=== PATIENT | female | born 1955 | race Caucasian/White ===

== ENCOUNTER 2023-04-07 07:30 | Outpatient (OUT) | payer MEDICARE, SELFPAY ==
[2023-04-07 07:47] LABS: Basophils Absolute Auto 0.1 10^3/uL (0.0-0.1); Basophils Percent Auto 1.7 % (0.2-2.0); Eosinophils Absolute Auto 0.2 10^3/uL (0.0-0.7); Eosinophils Percent Auto 3.2 % (0.9-7.0); Hematocrit 40.4 % (36.0-48.0); Hemoglobin 13.5 g/dL (12.0-16.0); Immature Granulocytes Abs Auto 0.01 10^3/uL (0.00-0.03); Immature Granulocytes Pct Auto 0.2 % (0.0-0.5); Lymphocytes Percent Auto 42.7 % (20.5-60.0); Mean Corpuscular HGB Conc 33.4 g/dL (29.9-35.2); Mean Corpuscular Hemoglobin 30.1 pg (26.7-34.0); Mean Corpuscular Volume 90.2 fL (81.0-99.0); Mean Platelet Volume 8.7 fL (9.5-13.5); Monocytes Absolute Auto 0.4 10^3/uL (0.3-0.8); Monocytes Percent Auto 7.4 % (1.7-12.0); Neutrophils Absolute Auto 2.1 10^3/uL (1.4-6.5); Neutrophils Percent Auto 44.8 % (43.0-75.0); Platelet Count 263 10^3/uL (150-450); Red Blood Count 4.48 10^6/uL (4.20-5.40); Red Cell Distribution Width 13.4 % (11.0-15.0); White Blood Count 4.8 10^3/uL (4.0-11.0)
--- NOTE | 2023-04-07 07:51 | XR_ITS ---
[address] [address] Patient Name: MARY CAMARA MRN: [id number] date: 1955 Sex: F Assigned Patient Location: [facility] Current Patient Location: [facility] Accession/Order Number: [id number] Exam Date: 04/07/2023 08:10 Report Date: 04/07/2023 08:30 At the request of: SHAN KWONG Procedure: XR DEXA axial skeleton EXAMINATION: XR DEXA axial skeleton HISTORY: Osteopenia M85.80 COMPARISON: DEXA bone densitometry 03/27/2021 TECHNIQUE: Dual-energy X-ray absorptiometry (DXA) was performed. FINDINGS: SPINE ANALYSIS: Average bone mineral density is 1.183 g/cm2. T-score (standard deviation relative to young adult mean): 0.0 . +6.5% change since prior study. HIP ANALYSIS: Lowest bone mineral density is within the left femoral neck, 0.782 g/cm2. T-score (standard deviation relative to young adult mean): -1.8 . +1.8% change since prior study. XR/XR DEXA axial skeleton IMPRESSION: World Phani Organization Classification: Osteopenia - Moderate Fracture Risk Electronically authenticated by: MARIA DOLORES GUIDRY Date: 04/07/2023 08:30
--- NOTE | 2023-04-07 07:51 | MM_ITS ---
Patient: MARY CAMARA Exam Date: 04/07/2023 : 1955 Gender:F Ordering : LESLYE Michelle Walton PROTOZOOLOGIST Admission #: [id number] Family : Order #: [id number] CLICK HERE TO VIEW EXAM RADIOLOGY REPORT PROCEDURE: MM TOMOSYNTHESIS SCREENING BI COMPARISON: MG MAMM SCREEN 3D VÍCTOR CAD, 04/04/2022. MG MAMM SCREEN 3D VÍCTOR CAD, 03/27/2021. MG MAMM SCREEN VÍCTOR W CAD, 03/31/2020. MG MAMM SCREEN VÍCTOR W CAD, 12/05/2011. INDICATIONS: Screening Calculator Name NCI Breast Cancer Risk Assessment Tool 5 Year Breast Cancer Risk 1.50% Lifetime Breast Cancer Risk 5.00% Personal Breast Cancer No Personal Ovarian Cancer No Treatments None Family Cancers Father with lung cancer at age 75. LOCATION: [facility] BREAST COMPOSITION: Extremely dense, which lowers the sensitivity of mammography. FINDINGS: DIAGNOSTIC CATEGORY 1--NEGATIVE. RIGHT BREAST: No significant suspicious finding. No significant change has occurred. LEFT BREAST: No significant suspicious finding. No significant change has occurred. RECOMMENDATIONS: ROUTINE MAMMOGRAM AND CLINICAL EVALUATION IN 12 MONTHS. PLEASE NOTE: A NORMAL MAMMOGRAM DOES NOT EXCLUDE THE POSSIBILITY OF BREAST CANCER. A CLINICALLY SUSPICIOUS PALPABLE LUMP SHOULD BE BIOPSIED. Dictated by: Pacheco Mcleod M.D. on 04/07/2023 at 11:19 Approved by: Pacheco Mcleod M.D. on 04/07/2023 at 11:21
[2023-04-07 10:59] LABS: Free T4 0.92 ng/dL (0.76-1.46)
[2023-04-07 14:39] LABS: Chloride 105 mmol/L (98-107); Sodium 141 mmol/L (136-145)
[2023-04-07 14:40] LABS: Alanine Aminotransferase 14 U/L (14-59); Albumin Globulin Ratio 1.5; Alkaline Phosphatase 60 U/L (46-116); Anion Gap 13.8; Aspartate Amino Transferase 17 U/L (15-37); BUN Creatinine Ratio 14.1; Bilirubin Total 0.5 mg/dL (0.2-1.0); Calcium 8.7 mg/dL (8.5-10.1); Carbon Dioxide 26.2 mmol/L (21.0-32.0); Chol HDL Ratio 2.5; Cholesterol 242 mg/dL (<=200); Estimated GFR (African America >60 (>=60); Estimated GFR (Non-African Ame >60 (>=60); Globulin 2.6 g/dL; Glucose 87 mg/dL (74-106); HDL Cholesterol 98 mg/dL (40-60); Thyroid Stimulating Hormone 7.341 uIU/mL (0.358-3.740); Total Protein 6.6 g/dL (6.4-8.2); Triglycerides 68 mg/dL (<=150); VLDL CHOLESTEROL 13.6 mg/dL
== END 2023-04-07 07:31 | disposition home or self-care (01) ==
LOC: MAMMO 07:30
PROVIDERS: PCP Nurse Practitioner; Visit Provider Nurse Practitioner
DX: Z12.31 Encounter for screening mammogram for malignant neoplasm of breast (principal); M85.80 Other specified disorders of bone density and structure, unspecified site; E03.9 Hypothyroidism, unspecified; E78.5 Hyperlipidemia, unspecified
CPT/HCPCS: 36415; 77063; 77067; 77080; 80053; 80061; 82306; 84439; 84443; 85025

== ENCOUNTER 2024-06-01 08:02 | Outpatient (OUT) | payer OTHER, SELFPAY ==
[2024-06-01 08:15] LABS: Basophils Absolute Auto 0.1 10^3/uL (0.0-0.1); Basophils Percent Auto 1.3 % (0.2-2.0); Eosinophils Absolute Auto 0.1 10^3/uL (0.0-0.7); Eosinophils Percent Auto 2.2 % (0.9-7.0); Hematocrit 40.8 % (36.0-48.0); Hemoglobin 13.6 g/dL (12.0-16.0); Immature Granulocytes Abs Auto 0.01 10^3/uL (0.00-0.03); Immature Granulocytes Pct Auto 0.2 % (0.0-0.5); Lymphocytes Absolute Auto 1.8 10^3/uL (1.2-3.8); Lymphocytes Percent Auto 38.3 % (20.5-60.0); Mean Corpuscular HGB Conc 33.3 g/dL (29.9-35.2); Mean Corpuscular Hemoglobin 30.8 pg (26.7-34.0); Mean Corpuscular Volume 92.3 fL (81.0-99.0); Mean Platelet Volume 8.7 fL (9.5-13.5); Monocytes Absolute Auto 0.3 10^3/uL (0.3-0.8); Monocytes Percent Auto 6.5 % (1.7-12.0); Neutrophils Absolute Auto 2.4 10^3/uL (1.4-6.5); Neutrophils Percent Auto 51.5 % (43.0-75.0); Platelet Count 241 10^3/uL (150-450); Red Blood Count 4.42 10^6/uL (4.20-5.40); Red Cell Distribution Width 13.2 % (11.0-15.0); White Blood Count 4.6 10^3/uL (4.0-11.0)
[2024-06-01 08:52] LABS: Alanine Aminotransferase 11 U/L (14-59); Albumin Globulin Ratio 1.2; Albumin Level 3.6 g/dL (3.4-5.0); Alkaline Phosphatase 65 U/L (46-116); Anion Gap 9.6; Aspartate Amino Transferase 18 U/L (15-37); BUN Creatinine Ratio 12.7; Bilirubin Total 0.6 mg/dL (0.2-1.0); Calcium 8.9 mg/dL (8.5-10.1); Carbon Dioxide 30.3 mmol/L (21.0-32.0); Chloride 105 mmol/L (98-107); Chol HDL Ratio 2.4; Cholesterol 228 mg/dL (<=200); Estimated GFR (African America >60 (>=60); Estimated GFR (Non-African Ame >60 (>=60); Glucose 87 mg/dL (74-106); HDL Cholesterol 95 mg/dL (40-60); Potassium 3.9 mmol/L (3.5-5.1); Sodium 141 mmol/L (136-145); Thyroid Stimulating Hormone 2.736 uIU/mL (0.358-3.740); Total Protein 6.6 g/dL (6.4-8.2); Triglycerides 69 mg/dL (<=150); VLDL CHOLESTEROL 13.8 mg/dL
[2024-06-01 09:03] LABS: Free T4 1.04 ng/dL (0.76-1.46)
--- NOTE | 2024-06-02 | MM_ITS ---
Patient Name: MARY CAMARA MR#: [id number] : 1955 Exam Date: 06/02/2024 Ordering Doctor: LESLYE Walton CNP RADIOLOGY REPORT PROCEDURE: MM TOMOSYNTHESIS SCREENING BI COMPARISON: MG MAMM SCREEN 3D VÍCTOR CAD, 04/04/2022. MM TOMOSYNTHESIS SCREENING BI, 04/07/2023. INDICATIONS: Screening Mammogram Calculator Name NCI Breast Cancer Risk Assessment Tool 5 Year Breast Cancer Risk 1.50% Lifetime Breast Cancer Risk 4.80% Personal Breast Cancer No Personal Ovarian Cancer No Treatments None Family Cancers Father with lung cancer at age 75. LOCATION: [facility] BREAST COMPOSITION: The breasts are extremely dense, which lowers the sensitivity of mammography. FINDINGS: DIAGNOSTIC CATEGORY 2--BENIGN FINDING. NO CHANGE FROM COMPARISON. RIGHT BREAST: No significant suspicious finding. LEFT BREAST: No significant suspicious finding. RECOMMENDATIONS: ROUTINE MAMMOGRAM AND CLINICAL EVALUATION IN 12 MONTHS. PLEASE NOTE: A NORMAL MAMMOGRAM DOES NOT EXCLUDE THE POSSIBILITY OF BREAST CANCER. A CLINICALLY SUSPICIOUS PALPABLE LUMP SHOULD BE BIOPSIED. Dictated by: John Cole MD on 06/02/2024 at 11:30 Approved by: John Cole MD on 06/02/2024 at 11:33
== END 2024-06-01 08:03 | disposition home or self-care (01) ==
LOC: LAB 08:02
PROVIDERS: PCP Nurse Practitioner; Visit Provider Nurse Practitioner
DX: K21.9 Gastro-esophageal reflux disease without esophagitis (principal); M85.80 Other specified disorders of bone density and structure, unspecified site; E03.9 Hypothyroidism, unspecified; Z80.1 Family history of malignant neoplasm of trachea, bronchus and lung
CPT/HCPCS: 36415; 80053; 80061; 84439; 84443; 85025

== ENCOUNTER 2024-06-02 10:00 | Outpatient (OUT) | payer OTHER, SELFPAY ==
--- NOTE | 2024-06-02 09:08 | MM_ITS ---
Patient Name: MARY CAMARA MR#: [id number] : 1955 Exam Date: 06/02/2024 Ordering Doctor: LESLYE Walton CNP RADIOLOGY REPORT PROCEDURE: MM TOMOSYNTHESIS SCREENING BI COMPARISON: MG MAMM SCREEN 3D VÍCTOR CAD, 04/04/2022. MM TOMOSYNTHESIS SCREENING BI, 04/07/2023. INDICATIONS: Screening Mammogram Calculator Name NCI Breast Cancer Risk Assessment Tool 5 Year Breast Cancer Risk 1.50% Lifetime Breast Cancer Risk 4.80% Personal Breast Cancer No Personal Ovarian Cancer No Treatments None Family Cancers Father with lung cancer at age 75. LOCATION: [facility] BREAST COMPOSITION: The breasts are extremely dense, which lowers the sensitivity of mammography. FINDINGS: DIAGNOSTIC CATEGORY 2--BENIGN FINDING. NO CHANGE FROM COMPARISON. RIGHT BREAST: No significant suspicious finding. LEFT BREAST: No significant suspicious finding. RECOMMENDATIONS: ROUTINE MAMMOGRAM AND CLINICAL EVALUATION IN 12 MONTHS. PLEASE NOTE: A NORMAL MAMMOGRAM DOES NOT EXCLUDE THE POSSIBILITY OF BREAST CANCER. A CLINICALLY SUSPICIOUS PALPABLE LUMP SHOULD BE BIOPSIED. Dictated by: John Cole MD on 06/02/2024 at 11:30 Approved by: John Cole MD on 06/02/2024 at 11:33
== END 2024-06-02 10:01 | disposition home or self-care (01) ==
LOC: MAMMO 06-14 09:05
PROVIDERS: PCP Nurse Practitioner; Visit Provider Nurse Practitioner
DX: Z12.31 Encounter for screening mammogram for malignant neoplasm of breast (principal); K21.9 Gastro-esophageal reflux disease without esophagitis; M85.80 Other specified disorders of bone density and structure, unspecified site; E03.9 Hypothyroidism, unspecified; Z80.1 Family history of malignant neoplasm of trachea, bronchus and lung
CPT/HCPCS: 77063; 77067

== ENCOUNTER 2024-12-20 10:08 | Emergency (ER) | payer OTHER, SELFPAY ==
[2024-12-20 10:13] VITALS: BP 121/84; PULSE 70; TEMP 36.9; O2SAT 96; BMI 22.1
--- NOTE | 2024-12-20 10:59 | ED_ITS ---
HPI HPI - General Adult General Chief complaint: Extremity Injury, Upper Stated complaint: FINGER PAIN Time Seen by Provider: 12/20/24 10:46 Source: patient Mode of arrival: walk-in History of Present Illness HPI narrative: Patient is a 69-year-old female who is presenting to the ER with chief complaint of reevaluation of right thumb wound, to the radial aspect of the right thumb lateral to the fingernail. Patient went to the urgent care on December 03 because she had avulsion to the distal aspect of the right thumb, radial aspect. Patient says there was a nurse practitioner that was working that today, and she used silver nitrate multiple times to stop the bleeding in the urgent care that time. Patient has an area of 2 x 1 cm necrotic area of skin That is partially falling off from this overnight procedure several weeks ago. Patient has some mild swelling to the fat pad of the right thumb, patient still having some yellowish-greenish drainage coming from the radial aspect of the necrotic area where the area is still draining some fluid. Patient still has areas of mild paronychia. No signs of felon, no signs of herpetic dilcia. All systems are negative except as noted/marked. All systems reviewed and otherwise negative. Nurses note and vital signs reviewed and patient is not hypoxic. General: The patient appears well and in no apparent distress. Patient is resting comfortably on cart. Patient is not toxic, lethargic, or listless Skin: Warm, dry, no pallor noted. There is no rash noted. No petechiae, purpura. Patient has some mild swelling to the fat pad of the right thumb, pa tient still having some yellowish-greenish drainage coming from the radial aspect of the necrotic area where the area is still draining some fluid. Patient still has areas of mild paronychia. No signs of felon, no signs of herpetic dilcia. Head: Normocephalic, atraumatic Eye: Normal conjunctiva, no drainage, EOMI. PERRL Ears, Nose, Mouth, and Throat: oral mucosa is moist. Nares patent. Mouth without vesicles. Cardiovascular: Regular Rate and Rhythm, no murmur, gallop, rub Respiratory: Patient is in no distress, no accessory muscle use, lungs are clear to auscultation, no wheezing, rales or rhonchi Back: non-tender, no CVA tenderness bilaterally to percussion. No CT LS midline pain GI: no tenderness to palpation, no masses appreciated. No rebound, guarding, or rigidity noted. No distention Musculoskeletal: Patient has full range of motion of all of the extremities, no motor, sensory, or focal neurological deficits. Patient has full superficial deep flexor tendons involved along with extensor tendons of the right thumb. The right fingernail is not involved at all, there is no elevation of the right thumbnail. No significant pain or pressure to the fat pad of the right thumb, no signs of felon, herpetic dilcia. Patient still has mild signs of paronychia I with the necrotic tissue above. Neurological: A&O x4, normal speech Psychiatric: Cooperative Related Data Home Medications ?Medication ?Instructions ?Recorded ?Confirmed alendronate 35 mg tablet 35 mg PO QWEEK 12/20/24 12/20/24 cephalexin 500 mg capsule 500 mg PO Q8H 12/20/24 12/20/24 escitalopram oxalate 10 mg tablet 10 mg PO QAM 12/20/24 12/20/24 levothyroxine 75 mcg tablet 75 mcg PO QAM 12/20/24 12/20/24 Previous Rx's ?Medication ?Instructions ?Recorded mupirocin 2 % topical ointment 1 applic topical TID 14 days #15 12/20/24 grams Allergies Allergy/AdvReac Type Severity Reaction Status Date / Time Sulfa (Sulfonamide Allergy Severe Headache Verified 12/20/24 10:17 Antibiotics) Opioid HPI Opioid Management Most Recent Opioid Data: No Data to Display PFSH PFSH Social History Little interest or pleasure in doing things: not at all Feeling down, depressed, or hopeless: not at all Exam Constitutional Vital Signs, click to edit/add: Last Vital Signs Temp 98.5 F 12/20/24 10:13 Pulse 70 12/20/24 10:13 Resp 18 12/20/24 10:13 BP 121/84 12/20/24 10:13 Pulse Ox 96 12/20/24 10:13 O2 Del Method Room Air 12/20/24 10:13 Course Vital Signs Vital signs: Vital Signs Temperature 98.5 F 12/20/24 10:13 Pulse Rate 70 12/20/24 10:13 Respiratory Rate 18 12/20/24 10:13 Blood Pressure 121/84 12/20/24 10:13 Pulse Oximetry 96 12/20/24 10:13 Oxygen Delivery Method Room Air 12/20/24 10:13 Temperature 98.5 F 12/20/24 10:13 Pulse Rate 70 12/20/24 10:13 Respiratory Rate 18 12/20/24 10:13 Blood Pressure 121/84 12/20/24 10:13 Pulse Oximetry 96 12/20/24 10:13 Oxygen Delivery Method Room Air 12/20/24 10:13 Medical Decision Making MDM Narrative Medical decision making narrative: Patient seen and examined: Education was done at bedside, no acute intervention needs to be done. Differential diagnosis includes but is not limited to: Diagnostics and management: Patient will have laboratory studies Relevant laboratory interpretation: Radiological studies: Please see the formal radiological report. Reevaluation: Shared decision making: I discussed with the patient the necessary laboratory findings and radiological findings. Social barriers to healthcare: There are no food insecurities, there is no issue with transportation, there are no insurance barriers. Disposition: I discussed with the patient education on herpetic dilcia, felon, paronychia. Education on the necrotic skin that has occurred after the silver nitrate was used to stop the bleeding. The skin will eventually slough off and patient has new skin that is growing underneath. Patient was placed on Bactroban prophylactically. Patient will follow-up with PCP. Patient was made an appointment on December [address] Dan if needed at 11 AM. Patient is aware of this. No questions at discharge. Discharge Plan Discharge Chief Complaint: Extremity Injury, Upper Clinical Impression: Paronychia of thumb, right Patient Disposition: Home, Self-Care Time of Disposition Decision: 10:55 Condition: Fair Prescriptions / Home Meds: New mupirocin 2 % ointment 1 applic topical TID 14 Days Qty: 15 0RF No Action alendronate 35 mg tablet 35 mg PO QWEEK cephalexin 500 mg capsule 500 mg PO Q8H escitalopram oxalate 10 mg tablet 10 mg PO QAM levothyroxine 75 mcg tablet 75 mcg PO QAM Print Language: Tristanian Instructions: Paronychia (ED) Additional Instructions: You have an appointment with Dr. DAN at 11 AM on December 27. Do warm soaks every hour with your right thumb in warm water, do not burn yourself, for the next 5 to 7 days. Start the topical antibiotic ointment today Follow-up with your PCP at scheduled appointment. Referrals: Michelle Walton NP [Primary Care Provider] - 1 week Pacheco Dan MD [Physician] - 1 week Discharge Date/Time: 12/20/24 11:06
== END 2024-12-20 11:06 | disposition home or self-care (01) ==
PROVIDERS: Emergency Provider Emergency Medicine; PCP Nurse Practitioner
DX: L03.011 Cellulitis of right finger (principal)
CPT/HCPCS: 99283

== ENCOUNTER 2025-07-01 08:04 | Outpatient (OUT) | payer OTHER, SELFPAY ==
--- OUTSIDE RECORDS SUMMARY | 2025-06-16 21:09 | XMS_ITS | Continuity of Care Document ---
Author Organization [facility] Address [address] [place] [address] Phone Care Team Providers Care Certified Driver Examiner Name Role Phone Michelle Walton HOPPER FEEDER-C Primary Care Provider Michelle Walton HOPPER FEEDER-C Attending Provider Care Teams Patient Care Team Team Status: Active Member Role Status Dates Michelle Walton NP-C Primary Care Provider Active Visit Care Team Team Status: Inactive Member Role Status Dates Michelle Walton NP-C Primary Care Provider Active Start: May 24, 2025 End: May 24, 2025 Michelle Walton NP-Celeste Attending Provider Active Start: May 24, 2025 End: May 24, 2025 Visit Care Team Team Status: Inactive Member Role Status Dates Michelle Walton NP-Celeste Primary Care Provider Active Start: June 16, 2025 End: June 16, 2025 Michelle Walton NP-Celeste Attending Provider Active Start: June 16, 2025 End: June 16, 2025 Chief Complaint and Reason for Visit Chief Complaint Admit Date Medicare Annual Wellness May 24, 2025 9:59am Z12.31 Z12.39 June 16, 2025 2: 43pm Reason for Visit Admit Date Acquired hypothyroidism May 24 9:59am Breast cancer screening by mammogram Sep tember 2024 9:59am Encounter for subsequent ximena ual wellness visit (AWV) in Medicare patient May 24, 2025 9:59am ORQUIDEA (generalized anxiety disorder) Sophia jacobsen 2024 9:59am Major depressive disorder, single episod e, mild May 24, 2025 9:59am Osteopenia May 24, 2025 9:59am Allergies, Adverse Reactions, Alerts Allergen Type Severity Reaction Last Updated Verified Status Sulfa (Sulfonamide Antibiotics) Allergy Unknown SEVERE HEADACHE December 14, 2024 11:41am Yes Active sulfacetamide Allergy Unknown Headache December 14, 2024 11:41am Yes Active sulfur Allergy Unknown Headache December 14 11:41am Yes Active Social History Smoking Status Status Start Date End Date Date of Observa tion Ex-smoker (finding) June 28, 2024 8:13am Observation Status Observation Response Date of Response Legal Sex Female (finding) Sex Assigned At Female 1955 Family History Relationship Condition Age at Onset Recorded Date/T jadyn father Unknown Malignant neoplasm Unknown mother Cerebrovascular accident (CVA) Unknown Hypertension Unknown Problems Active Problems Medical Problem Onset Date Status Left tennis elbow Unknown Active Encounter for subsequent ximena [facility] wellness visit (AWV) in Medicare patient Unknown Active ORQUIDEA (generalized anxiety disorder) Unknown Active Dysfunction of right eustachian tube Unknown Active Breast cancer screening by mammogram Unknown Active Acquired hypothyroidism Unknown Active Dysphagia Unknown Active Osteopenia Unknown Active Major depressive disorder, single episode, mild Unknown Active Irritable bowel syndrome with diarrhea Unknown Active Torus palatinus Unknown Active Seasonal allergic rhinitis Unknown Activ e Constipation Unknown Active Irritable bowel syndrome Unknown Active Inactive/Resolved Problems Medical Problem Onset Date Status Avulsion of skin of right thumb without complica tion Unknown Resolved Breast cancer screening Unknown Resolved Medications Medication Status Dose Units Route Directions Qty Days St art Date Stop Date End Date Instructions Adherence Sod Picosulf-Ma g Ox-Citric Ac (Clenpiq) 10 mg-3.5 gram- 12 gram/175 mL solution Discont inued 175 ML PO .COMPLEX 350 1 2023 12:00a m [facility] 2023 8:10a m 175 mL orally; Follow instructions given by office. Levothyroxi ne 75 mcg tablet Active 75 MCG PO Daily 2023 12:00a m Unknown Escitalopra m Oxalate 10 mg tablet Discont inued 10 MG PO Daily 2023 12:00a m [facility] 2024 10:41 am Alendronate 35 mg tablet Discont inued 35 MG PO Daily 2023 12:00a m [facility]2024 10:32 am Cephalexin 500 mg capsule Discont inued 500 MG PO Q8H 04 04December 14, 2024 12:00a m [facility] 6:59a m Alendronate 35 mg tablet Active 35 MG PO every week 2024 12:00a m Unknown Fluoxetine 10 mg capsule Active 10 MG PO Daily 90 2024 12:00a m Unknown Immunizations Immunization Event Date Not Given Reason Dose Number Line Installer Repairer Lot Number Vaccine Information Statement (VIS) Detail Administration Location Influenza, seasonal, injectable, pf June 24, 2014 Tetanus, Diphtheria adult, 5 Lf pres free abs December 03, 2024 [id number] [id number] Luis Daniel Procedures Procedure Date Performed Status MM screening mammo BI w/CAD June 16, 2025 2: 44pm completed Relevant Diagnostic Tests and/or Laboratory Data Diagnostic Imaging Reports Author Jame Crisostomo [facility] Report Date/Time June 16, 2025 4: 00pm [facility] [address] [place] [address] Mammography Report Signed Patient: Terese Parrish MR#: [id number] : 1955 Acct:[id number] Age/Sex: 70 / F Adm Date: 5 Loc: [place] Room: Type: [facility] Attending Dr: Michelle ARZATE Ordering Provider: CARITO Alvarez Date of Service: 06/16/25 Procedure(s): MM screening mammo BI w/CAD Accession Number(s): ([id number]) MM/MM screening mammo BI w/CAD: Z12.31 - Encounter for screening mammogram for malignant ... Copies to: CARITO Alvarez~ CLINICAL DATA: Screening for malignancy. BILATERAL SCREENING MAMMOGRAMS - FULL FIELD DIGITAL WITH TOMOSYNTHESIS AND CAD Tomosynthesis craniocaudal and mediolateral oblique views of both breasts were obtained using low-dose digital technique. Comparison is made to prior studies from 06/02/2024 and 04/07/2023. This examination was reviewed with the aid of CAD. There are scattered fibroglandular densities. Benign-appearing calcifications are present. There are no dominant masses, typically malignant calcifications orarchitectural distortion. There has been no significant interval change. MM/MM screening mammo BI w/CAD IMPRESSION: NO MAMMOGRAPHIC EVIDENCE OF MALIGNANCY. ROUTINE FOLLOW-UP IS RECOMMENDED IN ONE YEAR. RESULT CODE: 2 Benign Findings(s) DENSITY CODE: 2 (approximately 25-50% glandular) There are scattered areas of fibroglandular density. FOLLOW UP: 1YR The false-negative rate of mammography is approximately 10-percent. Management of a palpable abnormality must be based on clinical grounds. Patient was entered into a reminder system with a target due date for the next mammogram. Impression dictated by: Jame Crisostomo M.D. 06/16/2025 4:00 PM Dictation Location: [facility] Dictated By: Jame Crisostomo II, MD 06/16/25 1518 Signed By: <Electronically signed by Jame Crisostomo II, MD in [place]> 06/16/25 1600 Vital Signs Vital Reading Result Reference Range Collection Date/Time Height 60 [in_i] May 24, 2025 10:12am Weight 51.48 kg May 24, 2025 10:12am Body Temperature 98.6 [degF] 97.6-99.0 May 242024 10:12am Heart Rate 72 /min 60-100 May 24, 2025 10:12am Respiratory rate 18 /min 12-24 May 242024 10:12am Oxygen saturation by Pulse oximetry 97 % 95-100 May 24, 2025 10:12am BP Systolic 130 mm[Hg] 100-140 May 24, 2025 10:12am BP Diastolic 84 mm[Hg] 60-100 May 24, 2025 10:12am BMI (Body Mass Index) 22.1 kg/m2 Sept2024 10:12am Advance Directives Advance Directive Response Recorded Date/ Time Advance Directives No May 10:11am Insurance Providers Guarantor Terese Parrish Address [address] [place] [address] [place] [address] Contact Info. Home Phone: Payer Policy Id Subscriber's Name Subscriber Id Effectiv e Date Expiration Date [employer] [facility] ALYSSA [id number] Terese Shay Parrish [id number] Encounters Encounter Location(s) Arrival/Admit Date Discharge/Depart Date Provider(s) Departed Physician/Prov ider Office Visit -[facility] Family Medicine Luis Daniel May 24, 2025 9:59am May 24, 2025 10:48am CARITO Alvarez Departed Clinical [facility] June 16, 2025 2:43pm June 16, 2025 2:44pm CARITO Alvarez Recent Diagnosis Onset Date Admit Date Acquired hypothyroidism Unknown r 2024 9:59am Breast cancer screening by mammogram Unknown May 24, 2025 9:59am Encounter for subsequent ximena ual wellness visit (AWV) in Medicare patient Unknown May 24, 2025 9:59am ORQUIDEA (generalized anxiety disorder) Unknown May 24, 2025 9:59am Major depressive disorder, single episode, mild Unknown May 24, 2025 9:59am Osteopenia Unknown May 24 9:59am Assessments Diagnosis Onset Date Resolution Status Admit Date Acquired hypothyroidism acute S eptember 2024 9:59am Breast cancer screening by mammogram acute May 24 9:59am Encounter for subsequent ximena ual wellness visit (AWV) in Medicare patient acute May 24, 2025 9:59am ORQUIDEA (generalized anxiety disorder) acute May 24 9:59am Major depressive disorder, single episode, mild acute May 242024 9:59am Osteopenia acute May 24, 2025 9:59am Plan of Treatment Author Michelle Walton [facility] Authored May 24, 2025 10:42am Reviewed Ht/Wt/BMI Recommend eye exams yearly Recommend dental exam: twice a year Balance work/leisure activities exercise is recommended most days of the week (appropriate as chronic conditions allow) follow up yearly and prn going to stop escitalopram, will trial fluoxetine at 10mg daily Take medication only as directed. This medication will take approximately 4-6 weeks to become effective. If any suicidal thoughts, thoughts of hurting others, or hallucinations contact the office or proceed to the Emergency Room for mental health evaluation. This medication can cause dry mouth, dizziness, and in some cases worsening in depression symptoms. Please contact the office if these occur. on levothyroxine check labs yearly, and prn dose changes on changes in sxs cont current meds and exercise Take medication only as directed. This medication will take approximately 4-6 weeks to become effective. If any suicidal thoughts, thoughts of hurting others, or hallucinations contact the office or proceed to the Emergency Room for mental health evaluation. This medication can cause dry mouth, dizziness, and in some cases worsening in depression symptoms. Please contact the office if these occur. start fluoxetine 10mg fu in 6 weeks Future Tests Future scheduled test information is unavailable Pending Tests Test Name Ordered Date Scheduled Date Comprehensive Metabolic Panel May 24 10:26am Future Visits Future appointment information is unavailable Referrals to Other Providers Referral information is unavailable Future Procedures Procedure Name Ordered Date Scheduled Date Complete Blood Count Auto Diff May 24 10:26am Lipid Panel May 24, 2025 10:26am Free T4 (Free Thyroxine) May 24, 2025 10: 26am Thyroid Stimulating Hormone May 24, 2025 10:26am Future Medications Future medication information is unavailable Patient Instructions Patient instructions are unavailable
--- OUTSIDE RECORDS SUMMARY | 2025-07-01 08:07 | XMS_ITS | CCD ---
Author Organization [facility] Care Team Providers Care Advanced Practice Registered Nurse Name Role Phone Salam, Briggs Unavailable Unavailable Salam, Briggs Unavailable Unavailable Salam, Briggs Unavailable Unavailable AICHHOLZ, MICHELLE Unavailable Unavailable REQUEST, NONE LISTED Admitting Unavaila ble REQUEST, NONE LISTED Attending Unavaila ble AICHHOLZ, ACID REGENERATOR MICHELLE Primary Care Unavailable REQUEST, NONE LISTED Consulting Unavaila ble AICHHOLZ, ACID REGENERATOR MICHELLE Admitting Unavailable AICHHOLZ, ACID REGENERATOR MICHELLE Attending Unavailable AICHHOLZ, ACID REGENERATOR MICHELLE Primary Care Unavailable WEST, DR ULI Campbell Consulting Unavailable AICHHOLZ, ACID REGENERATOR MICHELLE Consulting Unavailable AICHHOLZ, ACID REGENERATOR MICHELLE Admitting Unavailable AICHHOLZ, ACID REGENERATOR MICHELLE Attending Unavailable AICHHOLZ, ACID REGENERATOR MICHELLE Primary Care Unavailable WEST, DR ULI Campbell Consulting Unavailable AICHHOLZ, ACID REGENERATOR MICHELLE Consulting Unavailable Aichholz SIDE SHOW ENTERTAINER, Michelle Unavailable Ryan LIKN, Danny Unavailable Danny Davis MD Primary Care Provider Michelle Walton Primary Care Provider MD Randa Imamira Attending Provider AICHHOLZ, MICHELLE Attending Unavailable AICHHOLZ, MICHELLE Attending Unavailable AICHHOLZ, MICHELLE Attending Unavailable AICHHOLZ, MICHELLE Attending Unavailable Magalyhantionette, Michelle J Primary Care Provider [phone] Michelle Walton Attending Provider Anton SIDE SHOW ENTERTAINER-CMichelle Primary Care Provider Anton SIDE SHOW ENTERTAINER-CMichelle Attending Provider Thang Tolentino Admitting Unavailable Aicmoise Michelle J Primary Care Unavailable Thang Tolentino Attending Unavailable Michelle Walton Attending Unavailable Michelle Walton Primary Care Unavailable Michelle Walton Admitting Unavailable Allergies Allergy Classification Reported Allergen(s) Allergy Type Date of Onset Reaction(s) Facility (1 source) Sulfonamides (Antibiotic); Translations: [sulfa drugs] Propensity to adverse reactions (disorder) [facility] Rep[facility] (1 source) Sulfonamides (Antibiotic) Drug allergy (disorder) 3 [facility] Repository (17 sources) Sulfonamides (Antibiotic) Drug Allergy 4 [facility] (17 sources) Sulfacetamide; Translations: [sulfacetamide] Drug Allergy 4 [facility] (6 sources) Sulfonamides (Antibiotic); Translations: [Sulfa (Sulfonamide Antibiotics)] Allergy to substance 4 [facility] (6 sources) Sulfur; Translations: [sulfur] Drug Allergy 4 [facility] Medications Current Medications Medication Drug Class(es) Dates Sig (Normalized) Sig (Original) alendronic acid 35 mg oral tablet (20 sources) Bisphosphonate Start: 05-24-2025 take 1 tablet by mouth every week Start: 06-14-2024 End: 05-24-2025 take 1 tablet by mouth once daily Alendronate 35 mg tablet Discontinued 35 MG PO Daily June 14, 2024 12:00am May 24, 2025 10:32am Start: 03-23-2024 End: 05-05-2025 alendronate (Fosamax) 35 MG tablet Indications: Osteopenia, unspecified location Take 1 tablet (35 mg) by mouth every 7 (seven) days 12 tablet 1 02/10/2025 05/05/2025 Active amoxicillin 875 mg / clavulanate 125 mg oral tablet (2 sources) Penicillin-class Antibacterial Start: 07-21-2024 End: 07-31-2024 take 1 tablet by mouth in the morning amoxicillin-clavulanate (Augmentin) 875-125 MG tablet Indications: Subacute maxillary sinusitis Take 1 tablet (875 mg) by mouth in the morning and 1 tablet (875 mg) before bedtime. Do all this for 10 days. Take with food. 20 tablet 07/21/2024 07/31/2024 Active FLUoxetine 10 mg oral capsule (2 sources) Serotonin Reuptake Inhibitor Start: 05-24-2025 take 1 capsule by mouth once daily fluticasone propionate 0.05 mg/actuat metered dose nasal spray (14 sources) Corticosteroid Start: 07-21-2024 End: 09-22-2024 take 2 spray(s) nasal route once daily fluticasone (Flonase) 50 MCG/ACT nasal spray Indications: Seasonal allergic rhinitis due to pollen Administer 2 sprays into each nostril Daily Shake gently. Before first use, prime pump. After use, clean tip and replace cap. 16 g 2 08/23/2024 Active levothyroxine sodium 0.075 mg oral tablet (20 sources) l-Thyroxine Start: 03-23-2024 End: 05-11-2025 take 1 tablet by mouth once daily mupirocin 0.02 mg/mg topical ointment (5 sources) RNA Synthetase Inhibitor Antibacterial Start: 12-20-2024 mupirocin (Bactroban) 2 % ointment APPLY TO THE AFFECTED AREA THREE TIMES DAILY 12/20/2024 Active Completed/Discontinued Medications Medication Drug Class(es) Dates Sig (Normalized) Sig (Original) cephalexin 500 mg oral capsule (8 sources) Cephalosporin Antibacterial Start: 12-14-2024 End: 05-24-2025 take 1 capsule by mouth every eight hours Cephalexin 500 mg capsule Discontinued 500 MG PO Q8H 21 December 14, 2024 12:00am May 24, 2025 6:59am escitalopram 10 mg oral tablet (20 sources) Serotonin Reuptake Inhibitor Start: 03-23-2024 End: 06-20-2025 take 1 tablet by mouth once daily Escitalopram Oxalate 10 mg tablet Discontinued 10 MG PO Daily June 14, 2024 12:00am May 24, 2025 10:41am Sod Picosulf-Mag Ox-Citric Ac (5 sources) Start: 05-31-2024 End: 06-14-2024 Sod Picosulf-Mag Ox-Citric Ac (Clenpiq) 10 mg-3.5 gram- 12 gram/175 mL solution Discontinued 175 ML PO .COMPLEX 350 1 May 31, 2024 12:00am Elaine 30th, 2024 8:10am 175 mL orally; Follow instructions given by office. 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] Onset: 4 10-14-2023 Episodic Esophageal disorders (19 sources) Gastroesophageal reflux disease; Translations: [Gastro-esophageal reflux disease without esophagitis] Onset: 4 04-27-2024 Chronic Mood disorders (4 sources) Mild major depression, single episode; Translations: [Major depressive disorder, single episode, mild] 05-24-2025 Chronic Open wounds of extremities (12 sources) Laceration without foreign body of right thumb without damage to nail, initial encounter; Translations: [Open wound of finger(s), without mention of complication] Onset: 5 12-03-2024 Episodic Other bone disease and musculoskeletal deformities (20 sources) Osteopenia; Translations: [Other specified disorders of bone density and structure, unspecified site] Onset: 4 05-24-2024 Episodic Other connective tissue disease (4 sources) Lateral epicondylitis of left humerus; Translations: [Lateral epicondylitis, left elbow] 12-03-2024 Episodic Other gastrointestinal disorders (20 sources) Irritable bowel syndrome with diarrhea; Translations: [Irritable bowel syndrome with diarrhea] Onset: 4 05-24-2024 Chronic Other gastrointestinal disorders (4 sources) Irritable bowel syndrome; Translations: [Irritable bowel syndrome without diarrhea] 12-03-2024 Chronic Other gastrointestinal disorders (4 sources) Dysphagia; Translations: [Dysphagia, unspecified] 12-03-2024 Episodic Other gastrointestinal disorders (4 sources) Constipation; Translations: [Constipation, unspecified] 12-03-2024 Episodic Other screening for suspected conditions (not mental disorders or infectious disease) (20 sources) Encounter for screening mammogram for malignant neoplasm of breast; Translations: [Patient encounter status] Onset: 2 05-24-2024 Episodic Other upper respiratory disease (19 sources) Seasonal allergic rhinitis; Translations: [Other seasonal allergic rhinitis] Onset: 4 04-27-2024 Chronic Other upper respiratory disease (4 sources) Allergic rhinitis due to pollen; Translations: [Allergic rhinitis due to pollen] 07-21-2024 Chronic Otitis media and related conditions (19 sources) Dysfunction of right eustachian tube; Translations: [Unspecified Eustachian tube disorder, right ear] Onset: 4 04-27-2024 Episodic Ovarian cyst (1 source) Other ovarian cyst, right side; Translations: [OTHER OVARIAN CYST RIGHT SIDE] Onset: 2 Episodic Thyroid disorders (20 sources) Hypothyroidism, unspecified; Translations: [Acquired hypothyroidism] Onset: 2 Chronic Unclassified (17 sources) Patient on antidepressant monitoring plan Onset: 4 03-23-2024 Unclassified (17 sources) Baseline PHQ-9 Onset: 4 03-23-2024 Past or Other Problems Problem Classification Problem Date Documented Da te Episodic/Chronic Abdominal pain (20 sources) Pelvic and perineal pain; Translations: [Pain in female pelvis] Onset: 07-30-2022 Episodic Malaise and fatigue (17 sources) Fatigue; Translations: [Other fatigue] Onset: 04-27-2024 04-27-2024 Episodic Mood disorders (16 sources) Mood disorders Onset: 05-24-2024 05-24-2024 Other ear and sense organ disorders (17 sources) Bilateral earache; Translations: [Otalgia, bilateral] Onset: 10-14-2023 Resolved: 05-24-2024 05-24-2024 Episodic Other gastrointestinal disorders (1 source) Diarrhea, unspecified; Translations: [Diarrhea, unspecified] Onset: 06-28-2024 Episodic Other nervous system disorders (17 sources) Paresthesia; Translations: [Paresthesia of skin] Onset: 04-27-2024 04-27-2024 Episodic Other upper respiratory infections (12 sources) Acute maxillary sinusitis; Translations: [Acute maxillary sinusitis, unspecified] Onset: 07-21-2024 Resolved: 08-23-2024 07-21-2024 Episodic Residual codes; unclassified (1 source) Other specified health status; Translations: [OTHER SPECIFIED HEALTH STATUS] Onset: 04-09-2022 Episodic Residual codes; unclassified (1 source) Family history of malignant neoplasm of trachea, bronchus and lung; Translations: [FAM HX MALIG NEOPLSM TRACH BRON LNG] Onset: 04-09-2022 Episodic Residual codes; unclassified (19 sources) Body mass index 20-24 - normal; Translations: [Body mass index (BMI) 22.0-22.9, adult] Onset: 10-14-2023 10-14-2023 Episodic Residual codes; unclassified (17 sources) Tobacco user; Translations: [Tobacco use] Onset: 10-14-2023 Resolved: 05-24-2024 05-24-2024 Episodic Results Test Name Value Interpretation Reference Range Facility MM screening mammo BI w/CADo n 06-16-2025 MM screening mammo BI w/CAD [facility] [address] [place] [address] Mammography Report Signed Patient: Terese Camara MR#: [id number] : 1955 Acct:[id number] Age/Sex: 70 / F Adm Date: 06/16/25 Loc: [place] Room: Type: [facility] Attending Dr: Michelle ARZATE Ordering Provider: CARITO Alvarez Date of Service: 06/16/25 Procedure(s): MM screening mammo BI w/CAD Accession Number(s): ([id number]) MM/MM screening mammo BI w/CAD: Z12.31 - Encounter for screening mammogram for malignant ... Copies to: CARITO Alvarez CLINICAL DATA: Screening for malignancy. BILATERAL SCREENING MAMMOGRAMS - FULL FIELD DIGITAL WITH TOMOSYNTHESIS AND CAD Tomosynthesis craniocaudal and mediolateral oblique views of both breasts were obtained using low- dose digital technique. Comparison is made to prior studies from 06/02/2024 and 04/07/2023. This examination was reviewed with the aid of CAD. There are scattered fibroglandular densities. Benign-appearing calcifications are present. There are no dominant masses, typically malignant calcifications or architectural distortion. There has been no significant interval [...] Crisostomo M.D. 06/16/2025 4:00 PM Dictation Location: [facility] Dictated By: Jame Crisostomo II, MD 06/16/25 1518 Signed By: 06/16/25 1600 Normal [facility] Mammography reportOrdered By : Jame Crisostomo on 06-16-2025 Diagnostic imaging study [facility] [address] [place] [address] Mammography Report Signed Patient: Terese Camara MR#: [id number] : 1955 Acct:[id number] Age/Sex: 70 / F Adm Date: 5 Loc: [place] Room: Type: [facility] Attending Dr: Michelle ARZATE Ordering Provider: CARITO Alvarez Date of Service: 06/16/25 Procedure(s): MM screening mammo BI w/CAD Accession Number(s): ([id number]) MM/MM screening mammo BI w/CAD: Z12.31 - [...] Crisostomo M.D. 06/16/2025 4:00 PM Dictation Location: [id number] Dictated By: Jame Crisostomo II, MD 06/16/25 1518 Signed By: 06/16/25 1600 [facility] Work Phone: Pathology Request for Lab Co rpon 06-28-2024 Pathology Request for Lab Melina Normal [facility] Comment on above: Order Comment: PATHO LOGY GI SPECIMEN Result Comment: See report. Scanned copy available in EMR. PERFORMED BY: [place] [address] PATHOLOGIST [employer] CLERK LUCY MELLO M.D. Performed By: #### P ATH TO [facility] #### [address] ALL CBC WITH AUTO DIFFon BASOPHILS ABSOLUTE AUTO 0.1 [facility] Basophils/100 WBC (Bld) 1.3 % 0.2 - 2.0 % [facility] Eosinophils/100 WBC (Bld) 2.2 % 0.9 - 7.0 % [facility] Erythrocyte distribution width (RBC) [Ratio] 13.2 % 11.0 - 15.0 % [facility] Hematocrit (Bld) [Volume fraction] 40.8 % 36.0 - 48.0 % [facility] Hemoglobin (Bld) [Mass/Vol] 13.6 g/dL 12.0 - 16.0 g/dL [facility] IMMATURE GRANULOCYTES ABS AUTO 0.01 [facility] Immature granulocytes/100 WBC (Bld) 0.2 % 0.0 - 0.5 % [facility] Interpretation and review of laboratory results Abnormal [facility] LYMPHOCYTES ABSOLUTE AUTO 1.8 [facility] Lymphocytes/100 WBC (Bld) 38.3 % 20.5 - 60.0 % [facility] MCH (RBC) [Entitic mass] 30.8 pg 26.7 - 34.0 pg [facility] MCHC (RBC) [Mass/Vol] 33.3 g/dL 29.9 - 35.2 g/dL [facility] MCV (RBC) [Entitic vol] 92.3 fL 81.0 - 99.0 fL [facility] MONOCYTES ABSOLUTE AUTO 0.3 [facility] Monocytes/100 WBC (Bld) 6.5 % 1.7 - 12.0 % [facility] NEUTROPHILS ABSOLUTE AUTO 2.4 [facility] Neutrophils/100 WBC (Bld) 51.5 % 43.0 - 75.0 % [facility] Platelet mean volume (Bld) [Entitic vol] 8.7 fL Low 9.5 - 13.5 fL [facility] TBH EO # 0.1 [facility] PLT 241 [facility] RBC 4.42 [facility] WBC 4.6 [facility] US PELVIS AND TRANSVAGon US PELVIS AND TRANSVAG EXAMINATION: US PELVIS AND TRANSVAG HISTORY: Pelvic and perineal pain COMPARISON: No relevant comparison available. FINDINGS: The uterus is surgically absent. The right ovary measures 1.9 x 1.5 x 2.0 cm. Normal color and Doppler flow. Area of anechoic echogenicity measuring 1.5 cm, simple cyst. 2 mm echogenic focus possibly calcification The left ovary is normal in appearance measuring 2.8 x 1.1 x 1.8 cm. Normal color and Doppler flow. Normal subcentimeter follicles Dilated left adnexal vessels with increased flow during Valsalva. IMPRESSION: Findings suggesting left uterine vein reflux/pelvic vascular congestion 1.5 cm right ovarian simple cyst Electronically authenticated by: ULI RODRIGUEZ Date: 2022-07-30 11:00 Normal [facility] CBC AUTO DIFFon 04-04-2022 BASO # 0.1 103/ul Normal 0.0-0.1 [facility] Comment on above: Performed By: #### C BC #### [facility] [address] [address] [address] Gayle Whalen Basophils/100 WBC (Bld) 1.4 % Normal 0.2-2.0 [facility] Comment on above: Performed By: #### C BC #### [facility] [address] [place] [address] Dr. Gayle Whalen EO # 0.1 103/ul Normal 0.0-0.7 [facility] Comment on above: Performed By: #### C BC #### [facility] [address] [place] [address] Dr. Gayle Whalen Eosinophils/100 WBC (Bld) 1.4 % Normal 0.9-7.0 [facility] Comment on above: Performed By: #### C BC #### [facility] [address] [place] [address] Dr. Gayle Whalen Erythrocyte distribution width (RBC) [Ratio] 13.2 % Normal 11.0-15.0 [facility] Comment on above: Performed By: #### C BC #### [facility] [address] [place] [address] Dr. Gayle Whalen Hematocrit (Bld) [Volume fraction] 44.3 % Normal 36.0-48.0 [facility] Comment on above: Performed By: #### C BC #### [facility] [address] [place] [address] Dr. Gayle Whalen Hemoglobin (Bld) [Mass/Vol] 14.4 g/dL Normal 12.0-16.0 [facility] Comment on above: Performed By: #### C BC #### [facility] [address] [place] [address] Dr. Gayle Whalen IG # 0.01 10e3/ul Normal 0.00-0.03 [facility] Comment on above: Performed By: #### C BC #### [facility] [address] [place] [address] Dr. Gayle Whalen IG % 0.2 % Normal 0.0-0.5 [facility] Comment on above: Performed By: #### C BC #### [facility] [address] [place] [address] Dr. Gayle Whalen LYMPH # 1.7 103/ul Normal 1.2-3.8 [facility] Comment on above: Performed By: #### C BC #### [facility] [address] [place] [address] Dr. Gayle Whalen Lymphocytes/100 WBC (Bld) 35.4 % Normal 20.5-60.0 [facility] Comment on above: Performed By: #### C BC #### [facility] [address] [place] [address] Dr. Gayle Whalen MANUAL DIFF REQ NO Normal [facility] Comment on above: Performed By: #### C BC #### [facility] [address] [place] [address] Dr. Gayle Whalen MCH (RBC) [Entitic mass] 29.7 pg Normal 26.7-34.0 [facility] Comment on above: Performed By: #### C BC #### [facility] [address] [place] [address] Dr. Gayle Whalen MCHC (RBC) [Mass/Vol] 32.5 g/dL Normal 29.9-35.2 [facility] Comment on above: Performed By: #### C BC #### [facility] [address] [place] [address] Dr. Gayle Whalen MCV (RBC) [Entitic vol] 91.3 fL Normal 81.0-99.0 [facility] Comment on above: Performed By: #### C BC #### [facility] [address] [place] [address] Dr. Gayle Whalen MONO # 0.4 103/ul Normal 0.3-0.8 [facility] Comment on above: Performed By: #### C BC #### [facility] [address] [place] [address] Dr. Gayle Whalen Monocytes/100 WBC (Bld) 8.6 % Normal 1.7-12.0 [facility] Comment on above: Performed By: #### C BC #### [facility] [address] [place] [address] Dr. Gayle Whalen NEUT # 2.6 103/ul Normal 1.4-6.5 [facility] Comment on above: Performed By: #### C BC #### [facility] [address] [place] [address] Dr. Gayle Whalen Neutrophils/100 WBC (Bld) 53.0 % Normal 43.0-75.0 [facility] Comment on above: Performed By: #### C BC #### [facility] [address] [place] [address] Dr. Gayle Whalen Platelet mean volume (Bld) [Entitic vol] 8.9 fL Critically low 9.5-13.5 [facility] Comment on above: Performed By: #### C BC #### [facility] [address] [place] [address] Dr. Gayle Whalen PLT 250 103/ul Normal 150-450 [facility] Comment on above: Performed By: #### C BC #### [facility] [address] [place] [address] Dr. Gayle Whalen RBC 4.85 106/ul Normal 4.20-5.40 [facility] Comment on above: Performed By: #### C BC #### [facility] [address] [place] [address] Dr. Gayle Whalen WBC 4.9 103/ul Normal 4.0-11.0 [facility] Comment on above: Performed By: #### C BC #### [facility] [address] [place] [address] Dr. Gayle Whalen FREE T4on 04-04-2022 Free T4 [Mass/Vol] 0.93 ng/dL Normal 0.76-1.[address] [facility] Comment on above: Performed By: #### F T4 #### [facility] [address] [place] [address] Dr. Gayle Whalen LIPID PROFILEon 04-04-2022 CHOL-HDL RATIO NORM SEE BELOW Normal [facility] Comment on above: Result Comment: 3.3 - 4.4 LOW RISK 4.4 - 7.1 AVERAGE RISK 7.1 - 11.0 MODERATE RISK >11.0 HIGH RISK Performed By: #### C MP, LIPID, TSH #### [facility] [address] [place] [address] Dr. Gayle Whalen Cholesterol [Mass/Vol] 241 mg/dL Critically high <=200 [facility] Comment on above: Performed By: #### C MP, LIPID, TSH #### [facility] [address] [address] [address] Gayle Whalen Cholesterol in HDL [Mass/Vol] 86 mg/dL Critically high 40-60 [facility] Comment on above: Performed By: #### C MP, LIPID, TSH #### [facility] [address] [address] [address] Gayle Whalen Cholesterol in LDL [Mass/Vol] 137.6 mg/dL Normal [facility] Comment on above: Performed By: #### C MP, LIPID, TSH #### [facility] [address] [address] [address] Gayle Whalen Cholesterol.total/ Cholesterol in HDL [Mass ratio] 2.8 {ratio} Normal [facility] Comment on above: Performed By: #### C MP, LIPID, TSH #### [facility] [address] [address] [address] Gayle Whalen HDL NORMAL > or = 60 mg/dl - LO W CARDIOVASCULAR RISK <40 mg/dl - HIGH CARDIOVASCULAR RISK Normal [facility] Comment on above: Performed By: #### C MP, LIPID, TSH #### [facility] [address] [address] [address] Gayle Whalen LDL CALC NORMAL SEE BELOW Normal [facility] Comment on above: Result Comment: <100 mg/dl OPTIMAL 100 - 129 mg/dl NEAR OR ABOVE OPTIMAL 130 - 159 mg/dl BORDERLINE HIGH 160 - 189 mg/dl HIGH >190 mg/dl VERY HIGH Performed By: #### C MP, LIPID, TSH #### [facility] [address] [address] [address] Gayle Whalen Triglyceride [Mass/Vol] 87 mg/dL Normal <=150 [facility] Comment on above: Performed By: #### C MP, LIPID, TSH #### [facility] [address] [address] [address] Gayle Whalen VLDL CALC 17.4 mg/dL Normal [facility] Comment on above: Performed By: #### C MP, LIPID, TSH #### [facility] [address] [place], [place] [address] Dr. Gayle Whalen MG MAMM SCREEN 3D VÍCTOR CADon 04-04-2022 MG MAMM SCREEN 3D VÍCTOR CAD Patient: TERESE CAMARA Exam Date: 04/04/2022 : 1955 Gender:F Ordering : LESLYE MICHELLE WALTON [facility] Admission #: [id number] Family : Order #: [id number] CLICK HERE TO VIEW EXAM RADIOLOGY REPORT PROCEDURE: MAMMOGRAM SCREENING 3D BILATERAL CAD COMPARISON: MG MAMM SCREEN 3D VÍCTOR CAD, 03/27/2021. MG MAMM SCREEN VÍCTOR W CAD, 03/31/2020. INDICATIONS: Screening mammography Calculator Name NCI Breast Cancer Risk Assessment Tool 5 Year Breast Cancer Risk 1.50% Lifetime Breast Cancer Risk 5.20% Personal Breast Cancer No Personal Ovarian Cancer No Treatments None Family Cancers Father with lung cancer at age 75. LOCATION: [facility] BREAST COMPOSITION: Extremely dense, which lowers the sensitivity of mammography. FINDINGS: DIAGNOSTIC CATEGORY 1--NEGATIVE. NO CHANGE FROM COMPARISON ASSESSMENT. Scattered benign-appearing calcifications are present. RIGHT BREAST: No significant suspicious finding. LEFT BREAST: No significant suspicious finding. RECOMMENDATIONS: ROUTINE MAMMOGRAM AND CLINICAL EVALUATION IN 12 MONTHS. PLEASE NOTE: A NORMAL MAMMOGRAM DOES NOT EXCLUDE THE POSSIBILITY OF BREAST CANCER. A CLINICALLY SUSPICIOUS PALPABLE LUMP SHOULD BE BIOPSIED. Dictated by: Uli Rodriguez MD on 04/04/2022 at 12:22 Approved by: Uli Rodriguez MD on 04/04/2022 at 12:24 Normal [facility] PROF 14(COMP METB)on 022 Albumin [Mass/Vol] 3.7 g/dL Normal 3.4-5.[address] [facility] Comment on above: Performed By: #### C MP, LIPID, TSH #### [facility] [address], [place] [address] Dr. Gayle Whalen Albumin/Globulin [Mass ratio] 1.1 {ratio} Normal [facility] Comment on above: Performed By: #### C MP, LIPID, TSH #### [facility] [address], [place] [address] Dr. Gayle Whalen ALP [Catalytic activity/Vol] 63 U/L Normal 46-116 [facility] Comment on above: Performed By: #### C MP, LIPID, TSH #### [facility] [address] [address] [address] Gayle Whalen ALT [Catalytic activity/Vol] 13 U/L Critically low 14-59 [facility] Comment on above: Performed By: #### C MP, LIPID, TSH #### [facility] [address] [address] [address] Gayle Whalen Anion gap [Moles/Vol] 7.7 mmol/L Normal [facility] Comment on above: Performed By: #### C MP, LIPID, TSH #### [facility] [address] [place] [address] Dr. Gayle Whalen AST [Catalytic activity/Vol] 18 U/L Normal 15-37 [facility] Comment on above: Performed By: #### C MP, LIPID, TSH #### [facility] [address] [address] [address] Gayle Whalen Bilirubin [Mass/Vol] 0.5 mg/dL Normal 0.2-1.0 [facility] Comment on above: Performed By: #### C MP, LIPID, TSH #### [facility] [address] [place] [address] Dr. Gayle Whalen Calcium [Mass/Vol] 9.0 mg/dL Normal 8.5-10.[address] [facility] Comment on above: Performed By: #### C MP, LIPID, TSH #### [facility] [address] [place] [address] Dr. Gayle Whalen Chloride [Moles/Vol] 104 mmol/L Normal 98-107 [facility] Comment on above: Performed By: #### C MP, LIPID, TSH #### [facility] [address] [place] [address] Dr. Gayle Whalen CO2 [Moles/Vol] 29.2 mmol/L Normal 21.0-32.0 [facility] Comment on above: Performed By: #### C MP, LIPID, TSH #### [facility] [address] [address] [address] Gayle Whalen Creatinine [Mass/Vol] 0.78 mg/dL Normal 0.55-1.02 [facility] Comment on above: Performed By: #### C MP, LIPID, TSH #### [facility] [address] [address] [address] Gayle Whalen EGFR-AF GIBRALTARIAN >60 Normal >=60 [facility] Comment on above: Performed By: #### C MP, LIPID, TSH #### [facility] [address] [address] [address] Gayle Whalen EGFR-NON AF GIBRALTARIAN >60 Normal >=60 [facility] Comment on above: Performed By: #### C MP, LIPID, TSH #### [facility] [address] [address] [address] Gayle Whalen Globulin (S) [Mass/Vol] 3.3 g/dL Normal [facility] Comment on above: Performed By: #### C MP, LIPID, TSH #### [facility] [address] [address] [address] Gayle Whalen Glucose [Mass/Vol] 90 mg/dL Normal 74-106 [facility] Comment on above: Performed By: #### C MP, LIPID, TSH #### [facility] [address] [address] [address] Gayle Whalen Potassium [Moles/Vol] 3.9 mmol/L Normal 3.5-5.1 [facility] Comment on above: Performed By: #### C MP, LIPID, TSH #### [facility] [address] [address] [address] Gayle Whalen Protein [Mass/Vol] 7.0 g/dL Normal 6.4-8.2 [facility] Comment on above: Performed By: #### C MP, LIPID, TSH #### [facility] [address] [address] [address] Gayle Whalen Sodium [Moles/Vol] 137 mmol/L Normal 136-145 [facility] Comment on above: Performed By: #### C MP, LIPID, TSH #### [facility] [address] [address] [address] Gayle Whalen Urea nitrogen [Mass/Vol] 14.0 mg/dL Normal 7.0-18.0 [facility] Comment on above: Performed By: #### C MP, LIPID, TSH #### [facility] [address] [address] [address] Gayle Whalen Urea nitrogen/Creatinin e [Mass ratio] 17.9 mg/mg Normal [facility] Comment on above: Performed By: #### C MP, LIPID, TSH #### [facility] [address] [address] [address] Gayle Whalen TSHon 04-04-2022 TSH 3.055 uIU/mL Normal 0.358-3.740 [facility] Comment on above: Performed By: #### C MP, LIPID, TSH ####[facility] [address] [address]Dr. Gayle Whalen UA RANDOM W/MICROSCOPICon BACTERIA TRACE Abnormal NONE SEEN [facility] Comment on above: Performed By: #### U AMIC #### [facility] [address] [place] [address] Dr. Gayle Whalen Bilirubin Ql (U) Negative Normal NEGATIVE [facility] Comment on above: Performed By: #### U AMIC #### [facility] [address] [place] [address] Dr. Gayle Whalen CAST NONE SEEN Normal NONE SEEN [facility] Comment on above: Performed By: #### U AMIC #### [facility] [address] [place] [address] Dr. Gayle Whalen Clarity (U) SL CLOUDY Abnormal CLEAR [facility] Comment on above: Performed By: #### U AMIC #### [facility] [address] [place] [address] Dr. Gayle Whalen Color (U) LT. YELLOW Normal YELLOW [facility] Comment on above: Performed By: #### U AMIC #### [facility] [address] [place] [address] Dr. Gayle Whalen Crystals LM Nom (Urine sed) NONE SEEN Normal NONE SEEN [facility] Comment on above: Performed By: #### U AMIC #### [facility] [address] [address] [address] Gayle Whalen Epithelial cells LM Ql (Urine sed) FEW Abnormal NONE SEEN /RARE [facility] Comment on above: Performed By: #### U AMIC #### [facility] [address] [address] [address] Gayle Whalen Glucose Ql (U) Negative Normal NEGATIVE [facility] Comment on above: Performed By: #### U AMIC #### [facility] [address] [address] [address] Gayle Whalen Hemoglobin Ql (U) SMALL Abnormal NEGATIVE [facility] Comment on above: Performed By: #### U AMIC #### [facility] [address] [place] [address] Dr. Gayle Whalen Ketones Ql (U) Negative Normal NEGATIVE [facility] Comment on above: Performed By: #### U AMIC #### [facility] [address] [address] [address] Gayle Whalen LEUKOCYTES MODERATE Abnormal NEGATIVE [facility] Comment on above: Performed By: #### U AMIC #### [facility] [address] [address] [address] Gayle Whalen MUCOUS SMALL Abnormal NONE SEEN [facility] Comment on above: Performed By: #### U AMIC #### [facility] [address] [address] [address] Gayle Whalen Nitrite Ql (U) Negative Normal NEGATIVE [facility] Comment on above: Performed By: #### U AMIC #### [facility] [address] [address] [address] Gayle Whalen pH (U) 7.0 [pH] Normal 5-9 [facility] Comment on above: Performed By: #### U AMIC #### [facility] [address] [place] [address] Dr. Gayle Whalen RBC 0-2 Normal 0-2 [facility] Comment on above: Performed By: #### U AMIC #### [facility] [address] [place] [address] Dr. Gayle Whalen SPEC GRAVITY 1.015 Normal 1.005-<=1.02 5 [facility] Comment on above: Performed By: #### U AMIC #### [facility] [address] [address] [address] Gayle Whalen UA PROTEIN Negative Normal NEGATIVE/ TRACE [facility] Comment on above: Performed By: #### U AMIC #### [facility] [address] [place] [address] Dr. Gayle Whalen Urobilinogen Qn (U) 0.2 {Balwinder'U}/dL Normal 0.2 - 1.0 [facility] Comment on above: Performed By: #### U AMIC #### [facility] [address] [place] [address] Dr. Gayle Whalen WBC 2-5 Abnormal NONE SEEN [facility] Comment on above: Performed By: #### U AMIC #### [facility] [address] [place] [address] Dr. Gayle Whalen MARLENY - LIPID PROFILEon 2020 CHOL-HDL RATIO NORM SEE BELOW Normal [facility] Comment on above: Result Comment: 3.3 - 4.4 LOW RISK 4.4 - 7.1 AVERAGE RISK 7.1 - 11.0 MODERATE RISK >11.0 HIGH RISK Performed By: #### D MARLENY BARTLETTVITD #### [facility] [address] [place] [address] Dr. Gayle Whalen Cholesterol [Mass/Vol] 221 mg/dL Critically high <=200 [facility] Comment on above: Performed By: #### D MARLENY BARTLETTVITD #### [facility] [address] [place] [address] Dr. Gayle Whalen Cholesterol in HDL [Mass/Vol] 90 mg/dL Normal [facility] Comment on above: Performed By: #### D DHRUV DATVITD #### [facility] [address] [place] [address] Dr. Gayle Whalen Cholesterol in LDL [Mass/Vol] 120.6 mg/dL Normal [facility] Comment on above: Performed By: #### D DHRUV DATVITD #### [facility] [address] [place] [address] Dr. Gayle Whalen Cholesterol.total/ Cholesterol in HDL [Mass ratio] 2.5 {ratio} Normal [facility] Comment on above: Performed By: #### D DHRUV DATVITD #### [facility] [address] [address] [address] Gayle Whalen HDL NORMAL > or = 60 mg/dl - LO W CARDIOVASCULAR RISK <40 mg/dl - HIGH CARDIOVASCULAR RISK Normal [facility] Comment on above: Performed By: #### D DHRUV DATVITD #### [facility] [address] [place] [address] Dr. Gayle Whalen LDL CALC NORMAL SEE BELOW Normal [facility] Comment on above: Result Comment: <100 mg/dl OPTIMAL 100 - 129 mg/dl NEAR OR ABOVE OPTIMAL 130 - 159 mg/dl BORDERLINE HIGH 160 - 189 mg/dl HIGH >190 mg/dl VERY HIGH Performed By: #### D DHRUV DATVITD #### [facility] [address] [place] [address] Dr. Gayle Whalen Triglyceride [Mass/Vol] 52 mg/dL Normal <=150 [facility] Comment on above: Performed By: #### D DHRUV DATVITD #### [facility] [address] [place] [address] Dr. Gayle Whalen VLDL CALC 10.4 mg/dL Normal [facility] Comment on above: Performed By: #### D DHRUV DATVITD #### [facility] [address] [address] [address] Gayle Whalen MARLENY - VITAMIN Don 08-04-2021 VIT D 25-OH 29.5 ng/mL Normal [facility] Comment on above: Performed By: #### D ATLCOY DATVITD #### [facility] [address] [place] [address] Dr. Gayle Whalen VIT D RANGES SEE BELOW Normal [facility] Comment on above: Result Comment: <20 ng/mL Vit D deficient 20 - <30 ng/mL Vit D insufficient 30 - 100 ng/mL Vit D sufficient >100 ng/mL Potential Toxicity Performed By: #### D ATLIPI, DATVITD #### [facility] [address], [place] [address] Dr. Gayle Whalen GLYCOHEMOGLOBIN A1Con 2020 ADA RECOMMENDATION ADA THERAPEUTIC TARG ET 6.0 - 7.0 ACTION SUGGESTED > 7.0 Normal [facility] Comment on above: Performed By: #### D ATA1C #### [facility] [address], [place] [address] Dr. Gayle Whalen Glucose [Mass/Vol] 105 mg/dL Normal [facility] Comment on above: Performed By: #### D ATA1C #### [facility] [address], [place] [address] Dr. Gayle Whalen HbA1c (Bld) [Mass fraction] 5.3 % Normal <=6.0 [facility] Comment on above: Performed By: #### D ATA1C #### [facility] [address], [place] [address] Dr. Gayle Whalen Coding Summary.on 03-23-2018 Coding Summary. CODING DATE: 018 FINAL [facility] STATUS: Home (Routine DC) PAYOR: [employer] APC DESCRIPTION 5301 Level 1 Upper GI Procedures 5311 Level 1 Lower GI Procedures ADMIT DX: REASON FOR VISIT DX: R10.13 Epigastric pain FINAL DX: PRINCIPAL: K29.50 Unspecified chronic gastritis without bleeding SECONDARY: R63.4 Abnormal weight loss K64.8 Other hemorrhoids R12 Heartburn F41.0 Panic disorder [episodic paroxysmal anxiety] E03.9 Hypothyroidism, unspecified Z85.828 Personal history of other malignant neoplasm of skin Z87.891 Personal history of nicotine dependence PYMT PROC APC STAT DESCRIPTION DOCTOR NAME DATE [id number] Chester Riojas MD 03/16/2018 phagogastroduodenoscopy, flexible, transoral; with biopsy, single or multiple [id number] T Colonoscopy, flexible; Chester Riojas MD 03/16/2018 diagnostic, including collection of specimen(s) by brushing or washing, when performed (separate procedure) 67676 Anesthesia for combined Chester Riojas MD 03/16/2018 upper and lower gastrointestinal endoscopic procedures, endoscope introduced both proximal to and distal to the duodenum NOTE: The code number assigned matches the documented diagnosis and / or procedure in the patient's chart. However, the narrative phrase printed from the coding software may appear abbreviated, or result in slightly different terminology. Coded By: Elvira Cruz Date Saved: 03/23/2018 10:14 am [facility] Main OR Intraoperative Recor don 03-17-2018 Main OR Intraoperative Record IntraOp Document Type FT Summary Primary Physician: Chester Riojas MD Finalized Date/Time: 03/17/18 07:11:53 Pt. Name: TERESE CAMARA/Sex: 1955 Female Med Rec #: [id number] Physician: Chester Riojas MD Financial #: [id number] Pt. Type: O Room/Bed: / Admit/Disch: 03/16/18 07:28:45 - 03/16/18 23:59:59 Institution: Case Times FT Entry 1 Patient Times In Room 03/16/18 07:51:00 Out Room 03/16/18 08:16:00 Procedure Times Start 03/16/18 07:55:00 Stop 03/16/18 08:13:00 Anesthesia Times Start 03/16/18 07:51:00 Stop 03/16/18 08:16:00 Time at [facility] 03/16/18 08:07:00 Last Modified By: Balbina RN, ZEYADORAmanda 03/16/18 08:17:00 General Comments: 0757 EGD completed/BRUNILDA,RN 0800 Colonoscopy began/BRUNILDA,RN 03/17/18CHART OPEN TO REVIEW AND SEND CHARGES. DIONTE SULLIVAN Case Attendance FT Entry 1 Entry 2 Entry 3 Case Attendee Curtis Capone DO, Pedro Jang RN, Raquel Blunt Role Performed Anesthesiologist of Temperature Logging Operator - Primary Scrub - Primary Record Time In 03/16/18 07:51:00 03/16/18 07:51:00 03/16/18 07:51:00 Time Out 03/16/18 08:16:00 03/16/18 08:16:00 03/16/18 08:16:00 Procedure EGD AND COLONOSCOPY(.) EGD AND COLONOSCOPY(.) EGD AND COLONOSCOPY(.) Comments EGD Last Modified By: Suhail SULLIVAN, Jammie Jang RN, Jammie De La Torre RN 03/16/18 08:17:04 03/16/18 08:17:04 03/16/18 08:17:04 Entry 4 Entry 5 Case Attendee Con Riojas MD, Kelly Loyd Role Performed Scrub - Primary Surgeon - Primary Time In 03/16/18 07:58:00 03/16/18 07:51:00 Time Out 03/16/18 08:16:00 03/16/18 08:16:00 Procedure EGD AND COLONOSCOPY(.) EGD AND COLONOSCOPY(.) Comments Colonoscopy Last Modified By: Suhail SULLIVAN, Jammie De La Torre RN 03/16/18 08:17:04 03/16/18 08:17:04 Perioperative Protocols FT Pre-Care Text: Implements protective measures prior to operative or invasive procedure, confirms identity before the operative or invasive procedure, verifies operative procedure, surgical site, and laterality Entry 1 Procedure(s) EGD AND COLONOSCOPY(.) Patient Identity Birthday, ID Band Verified (select at Check, Patient least 2): Participation Consents / H and P Anesthesia Consent, Operative Site N/A Verified HandP, Surgery/Procedure Marking Verified Consent Surgical Site No Laterality Verified n/a Verified Procedure Verified Yes Correct Patient Yes Position Verified Availability Equipment, Medication Prep Dry n/a Verified (If Applicable) PreOp Antibiotic No Time Out Pedro Acevedo Jr, DO, Given Participants Jammie Jang RN, Salam MD, Ney Briggs Kirstyn K Time Out Complete 03/16/18 07:54:00 Outcomes Met? Yes Last Modified By: Jammie Jang RN 03/16/18 07:54:13 Post-Care Text: The patient is free from signs and symptoms of injury caused by extraneous objects Allergy Information FT Pre-Care Text: Verifies allergies Entry 1 Allergies Reviewed? Yes Allergies Reviewed Self/Patient With Outcomes Met? Yes Last Modified By: Jammie Jang RN 03/16/18 07:14:54 Post-Care Text: The patient received appropriate medication(s) safely administered during the perioperative period Surgical Procedures FT Entry 1 Procedure Description Procedure EGD AND COLONOSCOPY Modifiers . Surgeon Description EGD with gastric biopsy. Colonoscopy. Primary Procedure Yes Primary Surgeon Chester Riojas MD Start 03/16/18 07:55:00 Stop 03/16/18 08:13:00 Anesthesia Type General Surgical Service Gastroenterology Wound Class 2 - Clean-Contaminated Last Modified By: Jammie Jang RN 03/16/18 08:13:58 General Case Data FT Pre-Care Text: Classifies surgical wound, implements aseptic technique, initiates traffic control Entry 1 Case Information OR ENDO 1 FT Case Level Level 2 Wound Class 2 - Clean-Contaminated Specialty Gastroenterology ASA Class 2 Preop Diagnosis EPIGASTRIC PAIN, Postop Same As Preop No HEARTBURN, WEIGHT LOSS Postop Diagnosis Normal EGD. Outcomes Met? Yes Colonoscopy- internal hemorrhoids. Last Modified By: Jammie Jang RN 03/16/18 08:16:04 Post-Care Text: The patient is free from signs and symptoms of infection Skin Assessment (Pre Procedure) FT Pre-Care Text: Implements protective measures to prevent skin/ tissue injury due to thermal or mechanical sources Evaluates for signs and symptoms of physical injury to skin and tissue Entry 1 Skin Integrity Intact, Wray, Warm, and Skin Abnormality No Dry Outcomes Met? Yes Last Modified By: Jammie Jang RN 03/16/18 07:15:21 Post-Care Text: The patient is free from signs and symptoms of injury caused by extraneous objects Patient Positioning FT Pre-Care Text: Identifies physical alterations that require additional precautions for procedure-specific positioning, verifies presence of prosthetics or corrective devices, positions the patient, evaluates the patient for signs and symptoms of injury as a result of positioning Entry 1 Procedure EGD AND COLONOSCOPY(.) Body Position Lateral, right side up Feet Uncrossed? Yes Left Arm Position Resting at Side Right Arm Position Resting at Side Left Leg Position Extended Right Leg Position Extended Positioning Device Safety Strap, Pillow Under Head Large Press Points Checked Yes By Jammie Jang RN, Marsh Jr DO, James A Outcomes Met? Yes Last Modified By: Jammie Jang RN 03/16/18 07:15:31 Post-Care Text: The patient is free from signs and symptoms of injury related to positioning Patient Care Devices FT Pre-Care Text: Implements protective measures to prevent skin/ tissue injury due to thermal or mechanical sources Entry 1 Entry 2 Equipment Type ENDOSCOPY VIDEO MONITOR CHARGE SURGERY SYSTEM[F] [F] Equipment Number [id number] Equipment Setting Outcomes Met? Yes Yes Last Modified By: Jammie Jang RN, RN, Kara N 03/16/18 07:15:46 03/16/18 07:15:46 Post-Care Text: The patient is free from signs and symptoms of injury caused by extraneous objects Transport To OR Pre-Care Text: Transports according to individual needs. Evaluates for signs and symptoms of skin and tissue injury as a result of transfer or transport Entry 1 Via Cart By Jammie Jang RN Safety Precautions Side Rails Up Outcomes Met? Yes Last Modified By: Jammie Jang RN 03/16/18 07:15:53 Post-Care Text: The patient is free from signs and symptoms of injury related to transfer/transport Departure From OR Pre-Care Text: Transports according to individual needs. Evaluates for signs and symptoms of skin and tissue injury as a result of transfer or transport. Entry 1 Via Cart Safety Precautions Safety Strap, Side Rails Up PostOp Destination PACU Transported By Jammie Jang RN Patient Status Stable Skin. Condition Intact, Wray, Warm, and Dry Airway Maintenance Oxygen in Use? No Airway Device N/A Outcomes Met? Yes Last Modified By: Jammie Jang RN 03/16/18 07:16:01 Post-Care Text: The patient is free from signs and symptoms of injury related to transfer/transport General Comments: Report given to PACU,RN/BRUNILDA,track layer Administration FT Pre-Care Text: Verifies allergies, administers prescribed medications and solutions, administers prescribed antibiotic therapy and immunizing agents as ordered, evaluates response to medications Administers prescribed medications and solutions Entry 1 Expiration Date Yes Outcomes Met? Yes Verified Last Modified By: Jammie Jang RN 03/16/18 07:16:09 Post-Care Text: The patient received appropriate medication(s) safely administered during the perioperative period For Love-Wan please see scanned medication reconcilliation form for medications used at the field during the procedure. Cultures and Specimens FT Pre-Care Text: Manages specimen handling and disposition Manages culture specimen collection Entry 1 Cultures Ordered n/a Specimens Ordered Yes Specimen Disposition Designated OR Area Frozen Section Times Outcomes Met? Yes Last Modified By: Jammie Jang RN 03/16/18 07:58:15 Post-Care Text: The patient is free from signs and symptoms of injury caused by extraneous objects The patient is free from signs and symptoms of infection Case Comments Finalized By: RUBINA Mortensen RN, Lou Ann Document Signatures Signed By: Jammie Jang RN 03/16/18 08:17 RUBINA Mortensen RN, Lou Ann 03/17/18 07:11 [facility] Progress Note-Physicianon Protein Patient: RONALD CAMARA Age: 62 years Sex: Female : 1955 Associated Diagnoses: None Author: Pedro Acevedo Jr, DO Preoperative Information Anesthesia results Review of Systems Cardiovascular: Negative. Respiratory: Negative. Health Status Allergies: Allergic Reactions (Selected)Severity Not DocumentedSulfa drugs- Unknown. Current medications: (Selected) Documented MedicationsDocumentedescit alopram: 10 mg, Oral, Daily, Refills(s) 0, Depressionlevothyroxine: 50 microgram, Oral, Daily, Refills(s) 0, Thyroid, Home Medications (2) Activeescitalopram 10 mg, Oral, Dailylevothyroxine 50 microgram, Oral, Daily Problem list: No problem items selected or recorded. Histories Past Medical History: No active or resolved past medical history items have been selected or recorded. Social History Social & Psychosocial HabitsNo Data Available. Physical Examination Airway: Mallampati classification: II (soft palate, fauces, uvula visible). Respiratory: Lungs are clear to auscultation. Cardiovascular: Regular rhythm. Neurologic: Alert, Oriented. Plan [place] [employer] (ASA) physical status classification: Class II. Anesthetic Preoperative Plan Anesthesia: General. . Anesthetic plan, risks, benefits, and alternatives discussed with the patient and/or family. Communication: face to face with (patient 5 minutes, Patient educated on smoking cesstation). [facility] Comment on above: Result Comment: Elec tronically Signed By: Pedro Acevedo Jr, DO\.br\Date and Time Signed: 03/17/18 08:17 EDT History and Physicalon 03-16 History and Physical Date: 02/24/2018 1:45 PMPatient Name: [place] #: [id number]: FemaleDOB (age): 1955 (62)Provider: Lenore Mcbride Physician: Michelle Walton, [id number] [place] [address] (phone) (fax)Chief Complaint: Dr anna for DysphagiaHistory of Present Illness:62 years old white female with history of panic attacks and hypothyroidism, referred to me to be evaluated for heartburn,epigastric pain, left upper quadrant pain and weight loss, her symptoms are chronic, started at least 3 months ago, her painis described as discomfort, dull, postprandial, no radiation, 5 out of 10 in severity, associated with mild heartburn and refluxsymptoms, no significant dysphagia, no melena, hematochezia or rectal bleeding, she reported 10 pounds weight loss overthe last 6 months, no family history of GI malignancyPast Medical HistoryMedical Conditions: GERDHypothyroidismPanic AttacksSkin CancerVertigoSurgical Procedures: ColonoscopyDx Studies: Colonoscopy 2014DEXAEGD 2013Medications: escitalopram oxalate 10 mglevothyroxine 50 mcgAllergies: Sulfa (Sulfonamide Antibiotics)Immunizations: Influenza, seasonal, injectableSocial HistoryAlcohol: Beer and liquor socially.Tobacco: Former smokerDrugs: NoneExercise: NoneCaffeine: 2-3 Cups daily.Marital Status: UnknownFamily History Sister: Healthy;Mother: Healthy;Grandfather: ;Grandmother: ;Father: ;Review of Systems:Printed on 03/13/2018 Terese Camara [id number], 1955 Page 1 of 4Printed on 03/13/2018 Terese Camara [id number], 1955llergic/Immunolog ic: Denies strong allergic reactions or urticaria, HIV exposure, Immune Deficiency, persistentinfections.Cardi ovascular: Denies chest pain, dyspnea with exercise, irregular heart beat, orthopnea, palpitations,peripheral edema, syncope.Constitutional: Complains of weight loss. Denies fatigue, fever, loss of appetite, malaise, sweats, weight gain,Arthritis, exhaustion, chills.ENMT: Complains of difficulty swallowing, sore throat, high pitched ringing, hoarseness. Deniesdizziness, ear pain, nasal obstruction, nose bleeds, ear discharge, frequent infections, hearingloss, nasal discharge.Endocrine: Complains of cold intolerance, heat intolerance. Denies excessive eating, excessive thirst,excessive urination, hair loss.Eyes: Denies double vision, loss of vision, photophobia, blurred vision, pain, wearing glasses/contacts.Gastroint estinal: Complains of abdominal pain, bloating, difficulty swallowing, heartburn, weight loss.Denies abdominal swelling, change in bowel habits, constipation, diarrhea, gas, jaundice,nausea, rectal bleeding, stomach cramps, vomiting.Genitourinary: Complains of hematuria. Denies dark urine, decrease in urine flow, dysuria, frequent urinaryinfections, frequent urination, nocturia, urethral discharge or incontinence, sexual difficulty,sexual transmitted diseases, kidney disease, kidney stones, pain with urination.Hematologic/Lymp hatic: Denies bleeding gums or palpable lymph nodes, easy bruising, prolonged bleeding, swollenglands.Integumentar y: Denies allergies, dryness, hives, itching, jaundice, lesions, rashes.Musculoskeletal: Denies arthritis, back pain, gout, joint deformity, joint pain, muscle weakness, stiffness, jointswelling, muscle pain.Neurological: Complains of vertigo. Denies dizziness, fainting, frequent headaches, migraine, numbness ortingling, seizures, tremors, memory disturbance.Psychiatric: Complains of anxiety, difficulty sleeping, panic attacks. Denies depression, hallucinations,nervousness , paranoia, abnormal stress, inability to concentrate, suicidal ideation.Respiratory: Denies asthma, cough, dyspnea, excessive sputum, hemoptisis, shortness of breath withexercise, wheezing, coughing up blood.Vital Signs:BP(mmHg)Pulse(ppm)Rh ythm Weight (lbs/oz) Height (ft/in) BMI Resp/min Nczu201/85 73 Regular 100 / 5 / 19.53 12 97.9 (F)Physical Exam:Constitutional:Appear ance: well developed, well nourished, normal habitus, no deformities, in no acute distress..Skin:Inspection: no rashes, ulcers, icterus or other lesions; no clubbing or telangiectasias..Palpation : no induration or subcutaneos nodules..Eyes:Conjunctivae /lids: normal conjunctivae and lids..Pupils/irises: symmetrical, normoreactive to light, normal accommodation and size..ENMT:Hearing: within normal limits.Lips/teeth/gums: normal oral mucosa,lips and gums; good dentition.Neck:Neck: normal motion, central trachea.Respiratory:Percus ilbby: thorax normoresonant.Auscultation : normal breath sounds; no rubs, wheezes, rale or ronchi.Cardiovascular:Ausc ultation: normal rhythm, S1 and S2; no rubs, murmurs or gallop.Peripheral: no edema, varicocities or cyanosis..Gastrointestinal /Abdomen:Abdomen: normal consistency, positive for left upper quadrant and epigastric tenderness.Liver/Spleen: normal size and consistency, not palpable.Hernias: no hernias appreciated.Rectal: Deferred.Musculoskeletal:G ait/station: normal gait and station.Printed on 03/13/2018 Terese Camara, [id number], 1955 Page 2 of 4Printed on 03/13/2018 Terese Camara, [id number], 1955Digits/nails: no clubbing, cyanosis, petechiae or other inflammatory conditions.Psychiatric:Kimi gment/insight: within normal limits.Orientation: oriented to time, space and person.Memory: within normal limits for recent and remote events.Mood and affect: no evidence of depression, anxiety or agitation.Impressions: Epigastric Pain, rule out peptic ulcer disease, if EGD is normal then we'll proceed with anabdomen computed tomography scan to rule out pancreatic etiology given her weight loss,possibly related to anxietyHeartburnLoss of weightPlan: Colonoscopy and EGD will be performed at [facility].Risk & Medical Necessity: Diagnosis and management options are Extensive. The amount of data reviewedand/or ordered is Moderate. The level of risk is Minimal.Chester Riojas MD Terese Camara, [id number], 1955 Page 3 of 4Printed on 03/13/2018 Terese Camara, [id number], 1955Printed on 03/13/2018 Terese Lester Camara, [id number], 1955 Page 4 of 4Printed on 03/13/2018 Terese Lester Caamra, [id number], 1955no change Normal [facility] Comment on above: Result Comment: Elec tronically Signed By: Chester Riojas MD\.br\Date and Time Signed: 03/16/18 07:52 EDT Inpatient Patient Summaryon 03-16-2018 In[facility] InstructionsPERSON INFORMATION Name: TERESE CAMARA [facility] Admitting Physician: Jae Riojas MDttending Physician: Chester Riojas MD PCP: MICHELLE WALTON CNP Diagnosis: Dyspepsia Comment: PATIENT EDUCATION INFORMATIONInstructions:Me dication Leaflets:Follow up:With: Address: When: [facility], [address] [place], [place] [id number] [facility] () Within 1 to 2 weeks MEDICATION LISTFill New Prescriptions:omeprazole (omeprazole 40 mg Cap-DR) 40 mg By Mouth every day 1 RefillsComment: Normal [facility] Main OR PACU I Recordon Main OR PACU I Record PACU Phase I Document Type FT Summary Primary Physician: Chester Riojas MD Finalized Date/Time: 03/16/18 10:07:50 Pt. Name: MARIANNA CAMARAKristin WhittO.B./Sex: 1955 Female Med Rec #: [id number] Physician: Chester Riojas MD Financial #: [id number] Pt. Type: O Room/Bed: / Admit/Disch: 03/16/18 07:28:45 - Institution: Case Times PACU I FT Pre-Care Text: Identifies barriers to communication and implements measures to provide psychological support Develops individualized plan of care, and ensures continuity of care Maintains patient's dignity and privacy, and maintains patient confidentiality Identifies and reports philosophical, cultural, and spiritual beliefs and values Identifies individual values and wishes concerning care Implements aseptic technique, and administers prescribed antibiotic therapy and immunizing agents as ordered Evaluates postoperative tissue perfusion Implements thermoregulation measures, and monitors body temperature Evaluates postoperative respiratory status Evaluates postoperative cardiac status Evaluates postoperative neurological status Assesses pain control, collaborated in initiating patient-controlled analgesia and implements alternative methods of pain control Verifies allergies, administers prescribed medications and solutions, evaluates response to medications Entry 1 In PACU I 03/16/18 08:17:00 Discharge from PACU 03/16/18 08:54:00 I Outcomes Met? Yes Last Modified By: Luz Marina Garcia RN 03/16/18 10:07:39 Post-Care Text: The patient demonstrates knowledge of the expected response to the operative or invasive procedure The patient's care is consistent with the individualized perioperative plan of care The patient's right to privacy is maintained The patient's value system, lifestyle, ethnicity, and culture are considered, respected, and incorporated into the perioperative plan of care The patient participates in decisions affecting his or her perioperative plan of care The patient is free from signs and symptoms of infection The patient has wound/tissue perfusion consistent with or improved from baseline levels established preoperatively The patient is at or returning to normothermia at the conclusion of the immediate postoperative period The patient's respiratory function is consistent with or improved from baseline levels established preoperatively The patient's cardiovascular status is consistent with or improved from baseline levels established preoperatively The patient's cardiovascular status is consistent with or improved from baseline levels established preoperatively The patient demonstrates and/or reports adequate pain control throughout the perioperative period The patient received appropriate medication(s), safely administered during the perioperative period Acuity Level PACU I FT Entry 1 Start Time 03/16/18 08:17:00 Stop Time 03/16/18 08:54:00 Acuity Level Acuity Level I Last Modified By: Luz Marina Garcia RN 03/16/18 10:07:50 Finalized By: Luz Marina Garcia RN Document Signatures Signed By: Luz Marina Garcia RN 03/16/18 10:07 [facility] Main OR Preoperative Recordo n 03-16-2018 Main OR Preoperative Record Holding Area Document Type FT Summary Primary Physician: Chester Riojas MD Finalized Date/Time: 03/16/18 07:36:46 Pt. Name: TERESE CAMARA /Sex: 1955 Female Med Rec #: [id number] Physician: Chester Riojas MD Financial #: [id number] Pt. Type: O Room/Bed: / Admit/Disch: 03/16/18 07:28:45 - Institution: Case Times Holding FT Pre-Care Text: Verifies consent for planned procedure, identifies individual values and wishes concerning care, includes family members in perioperative teaching Secures patient's records' belongings, and valuables, maintains patient's dignity and privacy, and maintains patient confidentiality Entry 1 In Holding 03/16/18 07:34:00 Outcomes Met? Yes Last Modified By: Angelica Ricci RN 03/16/18 07:35:59 Post-Care Text: The patient participates in decisions affecting his or her perioperative plan of care The patient's right to privacy is maintained Surgery Checklist FT Entry 1 Patient Birthday, ID Band Procedure History and Physical, Identification: Check, Patient Verification: Surgical Consent, With Participation Patient NPO after Midnight: No Complaints of Pain: No Operative Site n/a Availability Equipment Marking: Verified: Does Patient Smoke No Patient states Yes Comment - Adult Sister postop adult Supervision supervision available Case Cancelled in No Holding Area see comments below for reason Last Modified By: Angelica Ricci RN 03/16/18 07:35:49 General Comments: NPO after prep completed around 0400 per patient. RHRn Finalized By: Angelica Ricci RN Document Signatures Signed By: Angelica Ricci RN 03/16/18 07:36 Normal [facility] Patient Education - Texton 0 03-16-2018 Patient Education - Text Normal [facility] Progress Note-Physicianon Protein Patient: RONALD CAMARA Age: 62 years Sex: Female : 1955 Associated Diagnoses: None Author: Pedro Acevedo Jr, DO Postoperative Information Post Operative Note: Post Anesthesia Care Unit. Anesthetic utilized: Monitored anesthesia care. Health Status Allergies: Allergic Reactions (Selected)Severity Not DocumentedSulfa drugs- Unknown. Problem list: No problem items selected or recorded. Physical Examination Vital Signs 03/16/2018 08:50 EDT Heart Rate Monitored 58 bpm LOW Respiratory Rate Monitored 12 br/min SpO2 99 % 03/16/2018 08:47 EDT Heart Rate Monitored 60 bpm Respiratory Rate Monitored 17 br/min Systolic Blood Pressure 108 mmHg Diastolic Blood Pressure 70 mmHg Blood Pressure Location Left arm SpO2 98 % 03/16/2018 08:32 EDT Heart Rate Monitored 70 bpm Respiratory Rate Monitored 10 br/min Systolic Blood Pressure 103 mmHg Diastolic Blood Pressure 72 mmHg Blood Pressure Location Left arm SpO2 98 % 03/16/2018 08:27 EDT Heart Rate Monitored 70 bpm Respiratory Rate Monitored 16 br/min Systolic Blood Pressure 98 mmHg Diastolic Blood Pressure 69 mmHg Blood Pressure Location Left arm SpO2 99 % 03/16/2018 08:22 EDT Heart Rate Monitored 66 bpm Respiratory Rate Monitored 15 br/min Systolic Blood Pressure 96 mmHg Diastolic Blood Pressure 64 mmHg Blood Pressure Location Left arm SpO2 99 % 03/16/2018 08:17 EDT Temperature Temporal Artery 36 DegC LOW Heart Rate Monitored 72 bpm Respiratory Rate Monitored 21 br/min Systolic Blood Pressure 101 mmHg Diastolic Blood Pressure 64 mmHg Blood Pressure Location Left arm SpO2 97 % 03/16/2018 08:10 EDT Heart Rate Monitored 69 bpm bpm Systolic Blood Pressure 119 mmHg mmHg Diastolic Blood Pressure 77 mmHg mmHg SpO2 100 % % 03/16/2018 08:05 EDT Heart Rate Monitored 56 bpm bpm Systolic Blood Pressure 129 mmHg mmHg Diastolic Blood Pressure 80 mmHg mmHg SpO2 100 % % 03/16/2018 08:00 EDT Heart Rate Monitored 71 bpm bpm Systolic Blood Pressure 96 mmHg mmHg Diastolic Blood Pressure 61 mmHg mmHg SpO2 100 % % 03/16/2018 07:55 EDT Heart Rate Monitored 96 bpm bpm Systolic Blood Pressure 129 mmHg mmHg Diastolic Blood Pressure 87 mmHg mmHg SpO2 100 % % 03/16/2018 07:51 EDT Systolic Blood Pressure 146 mmHg mmHg Diastolic Blood Pressure 83 mmHg mmHg 03/16/2018 07:42 EDT Temperature Tympanic 36.6 DegC Heart Rate Monitored 70 bpm Respiratory Rate Monitored 13 br/min Systolic Blood Pressure 142 mmHg HI Diastolic Blood Pressure 85 mmHg Blood Pressure Location Left arm SpO2 98 % Vitals Signs (last 24 hrs) Last Charted Minimum MaximumTemp L 36 (MAR 16 08:17) L 36 (MAR 16 08:17) 36.6 (MAR 16 07:42)Heart Rate L 58 (MAR 16 08:50) 56 (MAR 16 08:05) 96 (MAR 16 07:55)Resp Rate 12 (MAR 16 08:50) 10 (MAR 16 08:32) 21 (MAR 16 08:17)SBP 108 (MAR 16 08:47) 96 (MAR 16 08:00) 146 (MAR 16 07:51)DBP 70 (MAR 16 08:47) 61 (MAR 16 08:00) 87 (MAR 16 07:55)SpO2 99 (MAR 16 08:50) 97 (MAR 16 08:17) 100 (MAR 16 07:55) Documented vital signs Pain assessment: Pain Assessment 03/16/2018 08:50 EDT Pain Symptoms Self Report No, able to self report Patient Preferred Pain Tool Numeric rating Numeric Pain Scale 0 = No pain Numeric Pain Score 0 03/16/2018 08:32 EDT Pain Symptoms Self Report No, able to self report Patient Preferred Pain Tool Numeric rating Numeric Pain Scale 0 = No pain Numeric Pain Score 0 03/16/2018 08:26 EDT Pain Symptoms Self Report No, able to self report Patient Preferred Pain Tool Numeric rating Numeric Pain Scale 0 = No pain Numeric Pain Score 0 . General: Alert and oriented, No acute distress. Respiratory: Lungs are clear to auscultation. Cardiovascular: Normal rate, Regular rhythm. Neurologic: Normal sensory. Review / Management Condition: Stable. Assessment Anesthetic outcome No anesthetic complications noted. Adequate pain relief. TOLERATING PO INTAKE. voiding w/o diff.. No Complaint of nausea and vomiting. Plan Transfer/ Discharge: Condition stable. Normal [facility] Comment on above: Result Comment: Elec tronically Signed By: Pedro Acevedo Jr, DO\.zander\Date and Time Signed: 03/16/18 09:09 EDT Vital Signs Date Time Vital Sign Value Performing Clinician Facility 05-24-2025 10:120400 Body height 152.4 cm Michelle Walton Work Phone: [facility] 05-24-2025 10:12-0400 Body mass index (BMI) [Ratio] 22.1 kg/m2 Michelle Walton Work Phone: [facility] 05-24-2025 10:12-0400 Body temperature 98.6 [degF] Michelle Aichholz Work Phone: [facility] 05-24-2025 10:12-0400 Body weight 51.48 kg Michelle Aichholz Work Phone: [facility] 05-24-2025 10:12-0400 Diastolic blood pressure 84 mm[Hg] Michelle Aichholz Work Phone: [facility] 05-24-2025 10:12-0400 Heart rate 72 /min Michelle Aichholz Work Phone: [facility] 05-24-2025 10:12-0400 Respiratory rate 18 /min Michelle Aichholz Work Phone: [facility] 05-24-2025 10:12-0400 SaO2% (BldA) [Mass fraction] 97 % Michelle Aichholz Work Phone: [facility] 05-24-2025 10:12-0400 Systolic blood pressure 130 mm[Hg] Michelle Aichholz Work Phone: [facility] 12-29-2024 14:52-0400 Body height 152.4 cm Michelle Aichholz [employer] SHOW ENTERTAINER Work Phone: [facility] 12-29-2024 14:52-0400 Body mass index (BMI) [Ratio] 22.07 kg/m2 Michelle Aichholz [employer] SHOW ENTERTAINER Work Phone: [facility] 12-29-2024 14:52-0400 Body temperature 97.81 [degF] Michelle Aichholz [employer]IDE SHOW ENTERTAINER Work Phone: [facility] 12-29-2024 14:52-0400 Body weight 51.26 kg Michelle Aichholz [employer]IDE SHOW ENTERTAINER Work Phone: [facility] 12-29-2024 14:52-0400 Diastolic blood pressure 72 mm[Hg] Michelle Aichholz [employer] SHOW ENTERTAINER Work Phone: [facility] 12-29-2024 14:52-0400 Heart rate 71 /min Michelle Walton [employer] SHOW ENTERTAINER Work Phone: [facility] 12-29-2024 14:52-0400 Respiratory rate 20 /min Michelle Walton [employer] SHOW ENTERTAINER Work Phone: [facility] 12-29-2024 14:52-0400 SaO2% (BldA) [Mass fraction] 97 % Michelle Walton [employer] SHOW ENTERTAINER Work Phone: [facility] 12-29-2024 14:52-0400 Systolic blood pressure 120 mm[Hg] Michelle Walton [employer] SHOW ENTERTAINER Work Phone: [facility] 12-14-2024 11:47-0400 Body height 152.[address] [facility] 12-14-2024 11:47-0400 Body mass index (BMI) [Ratio] 22.1 kg/m2 [facility] 12-14-2024 11:47-0400 Body temperature 98 [degF] [facility] 12-14-2024 11:47-0400 Body weight 51.[address] [facility] 12-14-2024 11:47-0400 Diastolic blood pressure 90 mm[Hg] [facility] 12-14-2024 11:47-0400 Heart rate 76 /min [facility] 12-14-2024 11:47-0400 Respiratory rate 12 /min [facility] 12-14-2024 11:47-0400 SaO2% (BldA) [Mass fraction] 98 % [facility] 12-14-2024 11:47-0400 Systolic blood pressure 135 mm[Hg] [facility] 12-03-2024 18:17-0400 Body height 152.[address] [facility] 12-03-2024 18:17-0400 Body mass index (BMI) [Ratio] 22.2 kg/m2 [facility] 12-03-2024 18:17-0400 Body temperature 97.5 [degF] [facility] 12-03-2024 18:17-0400 Body weight 51.[address] [facility] 12-03-2024 18:17-0400 Diastolic blood pressure 83 mm[Hg] [facility] 12-03-2024 18:17-0400 Heart rate 68 /min [facility] 12-03-2024 18:17-0400 Respiratory rate 18 /min [facility] 12-03-2024 18:17-0400 SaO2% (BldA) [Mass fraction] 96 % [facility] 12-03-2024 18:17-0400 Systolic blood pressure 129 mm[Hg] [facility] 08-23-2024 09:03-0500 Body height 152.4 cm Michelle Walton SIDE SHOW ENTERTAINER Work Phone: [facility] 08-23-2024 09:03-0500 Body mass index (BMI) [Ratio] 22.11 kg/m2 Michelle Anton [employer] SHOW ENTERTAINER Work Phone: [facility] 08-23-2024 09:03-0500 Body temperature 98.8 [degF] Michelle Anton [employer]IDE SHOW ENTERTAINER Work Phone: [facility] 08-23-2024 09:03-0500 Body weight 51.35 kg Michelle Anton SIDE SHOW ENTERTAINER Work Phone: [facility] 08-23-2024 09:03-0500 Diastolic blood pressure 78 mm[Hg] Michelle Anton SIDE SHOW ENTERTAINER Work Phone: [facility] 08-23-2024 09:03-0500 Heart rate 73 /min Michelle Malikz [employer] SHOW ENTERTAINER Work Phone: [facility] 08-23-2024 09:03-0500 Respiratory rate 18 /min Michelle Malikz [employer]IDE SHOW ENTERTAINER Work Phone: [facility] 08-23-2024 09:03-0500 SaO2% (BldA) [Mass fraction] 97 % Michelle Anton SIDE SHOW ENTERTAINER Work Phone: [facility] 08-23-2024 09:03-0500 Systolic blood pressure 120 mm[Hg] Michelle Aichholz SIDE SHOW ENTERTAINER Work Phone: [facility] 07-21-2024 13:02-0500 Body height 152.4 cm Michelle Aichholz [employer]IDE SHOW ENTERTAINER Work Phone: [facility] 07-21-2024 13:02-0500 Body mass index (BMI) [Ratio] 22.15 kg/m2 Michelle Aichholz [employer]IDE SHOW ENTERTAINER Work Phone: [facility] 07-21-2024 13:02-0500 Body temperature 97.81 [degF] Michelle Aichholz SIDE SHOW ENTERTAINER Work Phone: [facility] 07-21-2024 13:02-0500 Body weight 51.44 kg Michelle Aichholz SIDE SHOW ENTERTAINER Work Phone: [facility] 07-21-2024 13:02-0500 Diastolic blood pressure 76 mm[Hg] Michelle Aichholz SIDE SHOW ENTERTAINER Work Phone: [facility] 07-21-2024 13:02-0500 Heart rate 67 /min Michelle Aichholz [employer]IDE SHOW ENTERTAINER Work Phone: [facility] 07-21-2024 13:02-0500 Respiratory rate 18 /min Michelle Aichholz SIDE SHOW ENTERTAINER Work Phone: [facility] 07-21-2024 13:02-0500 SaO2% (BldA) [Mass fraction] 98 % Michelle Aichholz SIDE SHOW ENTERTAINER Work Phone: [facility] 07-21-2024 13:02-0500 Systolic blood pressure 120 mm[Hg] Michelle Aichholz SIDE SHOW ENTERTAINER Work Phone: [facility] 06-28-2024 10:20-0400 Diastolic blood pressure 79 mm[Hg] Michelle Aichholz Work Phone: [facility] 06-28-2024 10:20-0400 Heart rate 62 /min Michelle Aichholz Work Phone: [facility] 06-28-2024 10:20-0400 Respiratory rate 16 /min Michelle Aichholz Work Phone: [facility] 06-28-2024 10:20-0400 SaO2% (BldA) [Mass fraction] 100 % Michelle Aichholz Work Phone: [facility] 06-28-2024 10:20-0400 Systolic blood pressure 122 mm[Hg] Michelle Aichholz Work Phone: [facility] 06-28-2024 08:09-0400 Body height 152.4 cm Michelle Aichholz Work Phone: [facility] 06-28-2024 08:09-0400 Body weight 51.7 kg Michelle Aichholz Work Phone: [facility] 05-24-2024 17:04-0400 Body height 152.4 cm Michelle Aichholz SIDE SHOW ENTERTAINER Work Phone: [facility] 05-24-2024 17:04-0400 Body mass index (BMI) [Ratio] 22.34 kg/m2 Michelle Aichholz SIDE SHOW ENTERTAINER Work Phone: [facility] 05-24-2024 17:04-0400 Body temperature 97.5 [degF] Michelle Aichholz SIDE SHOW ENTERTAINER Work Phone: [facility] 05-24-2024 17:04-0400 Body weight 51.89 kg Michelle Aichholz SIDE SHOW ENTERTAINER Work Phone: [facility] 05-24-2024 17:04-0400 Diastolic blood pressure 78 mm[Hg] Michelle Aichholz SIDE SHOW ENTERTAINER Work Phone: [facility] 05-24-2024 17:04-0400 Heart rate 76 /min Michelle Aichholz SIDE SHOW ENTERTAINER Work Phone: [facility] 05-24-2024 17:04-0400 Respiratory rate 18 /min Michelle Aichholz SIDE SHOW ENTERTAINER Work Phone: [facility] 05-24-2024 17:04-0400 SaO2% (BldA) [Mass fraction] 97 % Michelle Walton SIDE SHOW ENTERTAINER Work Phone: [facility] 05-24-2024 17:04-0400 Systolic blood pressure 124 mm[Hg] Michelle Walton SIDE SHOW ENTERTAINER Work Phone: [facility] Healthcare Encounters Encounter Date Encounter Type Care Provider Facility Start: 06-16-2025 End: 06-16-2025 Patient encounter procedure Michelle Walton SIDE SHOW ENTERTAINER-C -[facility] Work Phone: Start: 06-16-2025 End: 06-16-2025 ambulatory Michelle Walton SIDE SHOW ENTERTAINER-C Work Phone: [facility] Work Phone: Start: 05-24-2025 End: 05-24-2025 ambulatory Michelle Walton Work Phone: [facility] Work Phone: Start: 05-24-2025 End: 05-24-2025 Patient encounter procedure Michelle Walton SIDE SHOW ENTERTAINER-C -[facility] [facility] Luis Daniel Work Phone: Start: 03-22-2025 End: 03-22-2025 Refill Michelle Anton SIDE SHOW ENTERTAINER Work Phone: [facility] Comment on above: ORQUIDEA (generalized anx iety disorder) Start: 02-10-2025 End: 02-10-2025 Refill Michelle Cornellholz SIDE SHOW ENTERTAINER Work Phone: [facility] Comment on above: Acquired hypothyroid ism (CMS/HCC); Osteopenia, unspecified location Start: 12-29-2024 End: 12-29-2024 Office outpatient visit 15 minutes Michelle Walton SIDE SHOW ENTERTAINER Work Phone: [facility] Comment on above: Open wound of finger of right hand, subsequent encounter (Primary Dx); Acquired hypothyroidism (CMS/HCC); ORQUIDEA (generalized anxiety disorder) (CMS/HCC) Start: 12-29-2024 End: 12-29-2024 ambulatory MICHELLE ANTON Not Available Start: 12-29-2024 End: 12-29-2024 Bamboo flowsheet Michelle Walton SIDE SHOW ENTERTAINER Work Phone: [facility] Start: 12-29-2024 End: 12-29-2024 Bamboo flowsheet Michelle Walton SIDE SHOW ENTERTAINER Work Phone: [facility] Start: 12-14-2024 End: 12-14-2024 ambulatory [facility] Work Phone: Start: 12-14-2024 End: 12-14-2024 Patient encounter procedure [facility] Urgent Care Luis Daniel Work Phone: Start: 12-03-2024 End: 12-03-2024 ambulatory [facility] Work Phone: Start: 12-03-2024 End: 12-03-2024 Patient encounter procedure [facility] Urgent Care Luis Daniel Work Phone: Start: 08-23-2024 End: 08-23-2024 Bamboo flowsheet Michelle Walton SIDE SHOW ENTERTAINER Work Phone: [facility] Start: 08-23-2024 End: 08-23-2024 Bamboo flowsheet Michelle Walton SIDE SHOW ENTERTAINER Work Phone: [facility] Start: 08-23-2024 End: 08-23-2024 Office outpatient visit 25 minutes Michelle Walton SIDE SHOW ENTERTAINER Work Phone: [facility] Comment on above: ORQUIDEA (generalized anx iety disorder) (CMS/HCC) (Primary Dx); Osteopenia, unspecified location; Acquired hypothyroidism (CMS/HCC); Seasonal allergic rhinitis due to pollen Start: 08-23-2024 End: 08-23-2024 ambulatory MICHELLE ANTON Not Available Start: 07-21-2024 End: 07-21-2024 Bamboo flowsheet Michelle Anton SIDE SHOW ENTERTAINER Work Phone: [facility] Start: 07-21-2024 End: 07-21-2024 Bamboo flowsheet Michelle Magalyjean-claudeantionette SIDE SHOW ENTERTAINER Work Phone: [facility] Start: 07-21-2024 End: 07-21-2024 ambulatory MICHELLE ANTON Not Available Start: 07-21-2024 End: 07-21-2024 Office outpatient visit 15 minutes Michellekristin Walton SIDE SHOW ENTERTAINER Work Phone: [facility] Comment on above: Subacute maxillary s inusitis (Primary Dx); BMI 22.0-22.9, adult; Seasonal allergic rhinitis due to pollen Start: 06-28-2024 Non-patient / Non-visit Michelle A kervin Work Phone: [facility] Gastroenterology Work Phone: Start: 06-28-2024 End: 06-28-2024 Admission to same day surgery center Michelle Anton Work Phone: [facility] Work Phone: Start: 06-28-2024 End: 06-28-2024 ambulatory Michelle Lou Magalyjean-claudeantionette Work Phone: [facility] Work Phone: Start: 06-18-2024 End: 06-18-2024 Refill Michelle Anton SIDE SHOW ENTERTAINER Work Phone: [facility] Comment on above: ORQUIDEA (generalized anx iety disorder) (CMS/HCC); Acquired hypothyroidism (CMS/HCC) Start: 06-12-2024 End: 06-13-2024 Refill Michelle Walton SIDE SHOW ENTERTAINER Work Phone: [facility] Comment on above: Osteopenia, unspecif ied location Start: 06-01-2024 End: 06-01-2024 Clinisync Result Encounter Michelle Walton SIDE SHOW ENTERTAINER Work Phone: [facility] Unsolicited Start: 06-01-2024 End: 06-01-2024 Clinisync Result Encounter Michelle Anton SIDE SHOW ENTERTAINER Work Phone: [facility] Unsolicited Start: 05-24-2024 End: 05-24-2024 ambulatory MICHELLE WALTON Not Available Start: 05-24-2024 End: 05-24-2024 Bamboo flowsheet Michelle Anton SIDE SHOW ENTERTAINER Work Phone: [facility] Start: 05-24-2024 End: 05-24-2024 Bamboo flowsheet Michelle Anton SIDE SHOW ENTERTAINER Work Phone: [facility] Start: 05-24-2024 End: 05-24-2024 Patient encounter procedure Michellekristin Walton SIDE SHOW ENTERTAINER Work Phone: [facility] Comment on above: Encounter for subseq uent annual wellness visit (AWV) in Medicare patient (Primary Dx); Encounter for screening mammogram for malignant neoplasm of breast; Acquired hypothyroidism ([facility]/HCC); Osteopenia, unspecified location; Gastroesophageal reflux disease, unspecified whether esophagitis present; ORQUIDEA (generalized anxiety disorder) (CMS/[facility]); Colon cancer screening; Irritable bowel syndrome with diarrhea Start: 07-30-2022 End: 07-31-2022 ambulatory LESLYE WALTON Facility: Start: 04-04-2022 End: 04-05-2022 ambulatory LESLYE WALTON Facility: Start: 08-04-2021 End: 08-05-[address] NONE LISTED REQUEST Facility: Start: 03-16-2018 End: 03-17-2018 Ambulatory Chester Riojas Facility:[facility] Procedures Date Procedure Procedure Detail Performing Clinician Start: 06-16-2025 Screening mammograph y of bilateral breasts Michelle Walton SIDE SHOW ENTERTAINER-C Work Phone: Start: 06-28-2024 End: 06-28-2024 Colonoscopy Michelle Walton Work Phone: Start: 06-14-2024 Mammography Michelle hodge SIDE SHOW ENTERTAINER Work Phone: Start: 06-02-2024 Mammography Michelle Bates ayesha SIDE SHOW ENTERTAINER Work Phone: Start: 06-01-2024 ALL CBC WITH AUTO DIFF Michelle Walton SIDE SHOW ENTERTAINER Work Phone: Start: 04-07-2023 Mammography Michelle Mckenziejean-claudejean-claude ayesha SIDE SHOW ENTERTAINER Work Phone: Start: 03-16-2018 Colonoscopy Michelle Mckenziejean-claudejean-claude ayesha SIDE SHOW ENTERTAINER Work Phone: Plan of Treatment Date Care Activity Detail Author Start: 06-28-2034 Screening for malign ant neoplasm of colon [facility] Start: 03-16-2028 Screening for malign ant neoplasm of colon [facility] Start: 06-14-2025 Screening for malign ant neoplasm of breast Mammogram [facility] Start: 06-02-2025 Screening for malign ant neoplasm of breast Mammogram [facility] Start: 05-24-2025 Medicare Annual Well ness (AWV) Medicare Annual Wellness (AWV) [facility] Start: 05-24-2025 End: 05-24-2025 Patient encounter procedure 05/24/2025 10:00 AM EDT Office Visit [facility] [address] [place] [id number] Michelle Walton NP [address] [place] [id number] [facility] Start: 05-16-2025 Influenza vaccination Influenza Vacc ine (#1) [facility] Start: 04-20-2025 Pneumococcal Vaccine : 65+ Years (1 of 1 - PCV) Pneumococcal Vaccine: 65+ Years (1 of 1 - PCV) [facility] Comment on above: Postponed from 03/21 (Patient Refused) Postponed from 03/21 (Patient Refused) Start: 12-29-2024 End: 12-29-2024 Patient encounter procedure 12/29/2024 2:40 PM EDT Office Visit [facility] [address] [place] [phone] Michelle Walton NP [address] [place] [address] Arrived [facility] Comment on above: Arrived Start: 08-23-2024 End: 08-23-2024 Patient encounter procedure [facility] Comment on above: ORQUIDEA (generalized anx iety disorder) ([facility]/HCC) (Primary Dx); Osteopenia, unspecified location; Acquired hypothyroidism ([facility]); Seasonal allergic rhinitis due to pollen Start: 07-15-2024 Influenza vaccination Influenza Vacc ine (#1) [facility] Comment on above: Postponed from 05/16 (Patient Does Not Have Time) Start: 06-28-2024 [facility] Start: 05-24-2024 End: 05-24-2024 Patient encounter procedure 05/24/2024 5:00 PM EDT Office Visit [facility] [address] [place] [address] Michelle Walton NP [address] [place] [address] Encounter for screening mammogram for malignant neoplasm of breast (Primary Dx); Acquired hypothyroidism ([facility]); Osteopenia, unspecified location; Gastroesophageal reflux disease, unspecified whether esophagitis present [facility] Comment on above: Encounter for screen ing mammogram for malignant neoplasm of breast (Primary Dx); Acquired hypothyroidism ([facility]/HCC); Osteopenia, unspecified location; Gastroesophageal reflux disease, unspecified whether esophagitis present Start: 05-24-2024 End: 05-24-2025 CBC W Auto Differential panel - Blood CBC and differential Lab Routine Gastroesophageal reflux disease, unspecified whether esophagitis present Expected: 05/24/2024 (Approximate), Expires: 05/24/2025 [facility] Comment on above: Expected: 05/24/2024 (Approximate), Expires: 05/24/2025 Start: 05-24-2024 End: 05-24-2025 Comprehensive metabolic 2000 panel - Serum or Plasma Comprehensive metabolic panel Lab Routine Osteopenia, unspecified location Gastroesophageal reflux disease, unspecified whether esophagitis present Expected: 05/24/2024 (Approximate), Expires: 05/24/2025 [facility] Comment on above: Expected: 05/24/2024 (Approximate), Expires: 05/24/2025 Start: 05-24-2024 End: 05-24-2025 Lipid 1996 panel - Serum or Plasma Lipid panel Lab Routine Acquired hypothyroidism (CMS/HCC) Expected: 05/24/2024 (Approximate), Expires: 05/24/2025 [facility] Comment on above: Expected: 05/24/2024 (Approximate), Expires: 05/24/2025 Start: 05-24-2024 End: 07-24-2025 MG Breast - bilateral Screening Bilateral screening mammogram Imaging Routine Encounter for screening mammogram for malignant neoplasm of breast Expected: 05/24/2024 (Approximate), Expires: 07/24/2025 [facility] Work Phone: Comment on above: Expected: 05/24/2024 (Approximate), Expires: 07/24/2025 Start: 05-24-2024 End: 05-24-2025 Thyrotropin [Units/volume] in Serum or Plasma TSH Lab Routine Acquired hypothyroidism (CMS/HCC) Expected: 05/24/2024 (Approximate), Expires: 05/24/2025 [facility] Comment on above: Expected: 05/24/2024 (Approximate), Expires: 05/24/2025 Start: 05-24-2024 End: 05-24-2025 Thyroxine (T4) free [Mass/volume] in Serum or Plasma T4, free Lab Routine Acquired hypothyroidism (CMS/HCC) Expected: 05/24/2024 (Approximate), Expires: 05/24/2025 [facility] Comment on above: Expected: 05/24/2024 (Approximate), Expires: 05/24/2025 Start: 05-16-2024 Influenza vaccination Influenza Vacc ine (#1) [facility] Start: 04-07-2024 Screening for malign ant neoplasm of breast Mammogram [facility] Start: 1955 Medicare Annual Well ness (AWV) Medicare Annual Wellness (AWV) [facility] Start: 1955 Screening for malign ant neoplasm of colon [facility] Comprehensive metabo lic 2000 panel - Serum or Plasma [facility] Patient Education Colon polyps H emorrhoids (DC) Diverticulosis (DC) Know your Meds [facility] Work Phone: [facility] Immunizations Immunization Date Immunization Notes Care Provider Juliann sumimanav 12-03-2024 tetanus and diphther ia toxoids, adsorbed, preservative free, for adult use (5 Lf of tetanus toxoid and 2 Lf of diphtheria toxoid) [facility] 07-02-2024 influenza virus vaccine, unspecified formulation Michelle Aichholz SIDE SHOW ENTERTAINER Work Phone: [facility] 06-16-2020 influenza, injectabl e, quadrivalent, preservative free Michelle Aichholz SIDE SHOW ENTERTAINER Work Phone: [facility] 06-16-2020 influenza virus vaccine, unspecified formulation Michelle Aichholz SIDE SHOW ENTERTAINER Work Phone: [facility] 08-12-2018 zoster vaccine recombinant Michelle Aichholz SIDE SHOW ENTERTAINER Work Phone: [facility] 07-02-2018 influenza, injectabl e, quadrivalent, preservative free Michelle Aichholz SIDE SHOW ENTERTAINER Work Phone: [facility] 06-25-2018 influenza, injectabl e, quadrivalent, preservative free Michelle Aichholz SIDE SHOW ENTERTAINER Work Phone: [facility] 2018 zoster vaccine recombinant Michelle Aichholz SIDE SHOW ENTERTAINER Work Phone: [facility] 08-13-2017 influenza, injectabl e, quadrivalent, preservative free Michelle Aichholz SIDE SHOW ENTERTAINER Work Phone: [facility] 07-14-2016 influenza, injectabl e, quadrivalent, preservative free Michelle Aichholz SIDE SHOW ENTERTAINER Work Phone: [facility] 09-27-2015 influenza, seasonal, injectable, preservative free Michelle Aichholz SIDE SHOW ENTERTAINER Work Phone: [facility] 06-24-2014 influenza, seasonal, injectable, preservative free Michelle Aichholz Work Phone: [facility] 06-22-2014 influenza, seasonal, injectable Michelle Aichholz SIDE SHOW ENTERTAINER Work Phone: [facility] 10-13-2013 influenza, seasonal, injectable Michelle Aichholz SIDE SHOW ENTERTAINER Work Phone: [facility] 08-19-2012 influenza, seasonal, injectable Michelle Aichholz SIDE SHOW ENTERTAINER Work Phone: [facility] Payers Date Payer Category Payer Medicare (Managed Care) [employer] [id number] 2023 Unknown [employer] D [employer] [id number] 2023-Present [address] [place] [id number] 2023 Medicare [id number] 2018 Unknown [id number] 1959 Self-pay 1959 Unknown [id number] 1955 Unknown [id number] 1955 Unknown [id number] 1955 Unknown [id number] 1259 1955 Unknown [id number] 1259 1955 Unknown [id number] [id number] 1955 Unknown [id number] [id number] Unknown [id number] Unknown [id number] Unknown [id number] Social History Date Type Detail Facility Start: 10-07-2023 End: 06-28-2024 Tobacco smoking status [facility] Ex-smoker [facility] End: 09-15-1997 History of tobacco use Current smoker [facility] End: 09-15-1997 History of tobacco use Cigarette Smoker [facility] Start: 05-24-2024 End: 12-29-2024 Alcoholic beverage intake Current drinker of alcohol (finding) [facility] Start: 10-09-2023 End: 12-26-2024 History of Social function [facility] Start: 10-09-2023 End: 12-26-2024 Humiliation, Afraid, Rape, and Kick questionnaire [HARK] [facility] Within the last year , have you been afraid of your partner or ex-partner? No [facility] Attends Club or Organization Meetings Not on file [facility] Are you now , , , , never or living with a partner? [facility] How often to you hav e a drink containing alcohol? 2-4 times a month [facility] How many standard dr inks containing alcohol do you have on a typical day? 1 or 2 [facility] How often do you hav e 6 or more drinks on 1 occasion? Never [facility] Do you feel stress - tense, restless, nervous, or anxious, or unable to sleep at night because your mind is troubled all the time - these days [OSQ] Only a little [facility] (I/We) worried wheth er (my/our) food would run out before (I/we) got money to buy more. Never true [facility] Start: 1955 Sex assigned at Not on file [facility] Start: 1955 Sex Assigned At Female F [facility] Start: 12-03-2024 End: 12-14-2024 Sex Female (finding) [facility] How often to you hav e a drink containing alcohol? 2-3 time sa week [facility] Goals Date Patient Goal Desired Activity /State Personal health goal Clinical Notes 05-24-2024 to 05-24-2025 Note Date & Type Note Facility 05-24-2025 Evaluation note Diagnosis Onset Date Resolution Acquired hypothyroidism acute S eptember 2024 9:59am Breast cancer screening by mammogram acute May 24, 025 9:59am Encounter for subsequent annual wellness visit (AWV) in Medicare patient acute May 24, 2 025 9:59am ORQUIDEA (generalized anxiety disorder) acute May 24, 025 9:59am Major depressive disorder, single episode, mild acute May 24, 025 9:59am Osteopenia acute May 24, 2025 9:59am [facility] Work Phone: 1(251) 853-891004-16-2025 History of Present illness Narrative* Michelle Walton NP - 12/29/2024 3:37 PM EDTAssociated Problem(s): Open wound of finger of right hand This happened about 4 weeks ago She was seen in urgent care twice and ER, and has seen wound care once Is doing better, no fever, chills, no acute pain Continue fu with wound care * Michelle Walton NP - 12/29/2024 3:36 PM EDTAssociated Problem(s): ORQUIDEA (generalized anxiety disorder) ([facility]) Currently taking escitalopram Step father has passed since last visit, mother is home Still w stressors, not as severe Does not need change in med dose * Michelle Walton NP - 12/29/2024 3:35 PM EDTAssociated Problem(s): Acquired hypothyroidism (CMS/HCC) Currently taking levo Check labs yearly and prn dose changes * Michelle Walton NP - 12/29/2024 2:40 PM EDT Images from the original note were not included. Terese Camara is a 69 y.o. female presents with chief complaint of Follow-up (Urgent care follow up wound on right thumb) HPI: Anxiety Presents for follow-up visit. Patient reports no chest pain, depressed mood, dizziness, excessive worry, irritability, nausea, nervous/anxious behavior, palpitations, shortness of breath or suicidal ideas. Symptoms occur occasionally. The severity of symptoms is mild. The quality of sleep is good. N ighttime awakenings: none. Compliance with medications is 76-100%. Thyroid Problem Presents for follow-up visit. Patient reports no anxiety, constipation, depressed mood, diarrhea, dry skin, heat intolerance, palpitations, tremors, weight gain or weight loss. The symptoms have beenstable. Wound Check She was originally treated more than 14 days ago. Previous treatment included oral antibiotics. There has been no drainage from the wound. There is no redness present. There is no swelling present. The pain has improved. She has no difficulty moving the affected extremity or digit. SUBJECTIVE: MEDICATIONS: Current Outpatient Medications Medication Instructions alendronate (FOSAMAX) 35 mg, Oral, Every 7 days cephalexin (KEFLEX) 500 mg, 4 times daily escitalopram (LEXAPRO) 10 mg, Oral, Every morning fluticasone (Flonase) 50 MCG/ACT nasal spray 2 sprays, Each Nostril, Daily, Shake gently. Before first use, prime pump. After use, clean tip and replace cap. levothyroxine (SYNTHROID, LEVOXYL) 75 mcg, Oral, Daily before breakfast mupirocin (Bactroban) 2 % ointment APPLY TO THE AFFECTED AREA THREE TIMES DAILY ALLERGIES: Allergies Allergen Reactions Sulfa Antibiotics Headache Sulfacetamide Headache REVIEW OF SYMPTOMS: Review of Systems Constitutional: Negative for appetite change, chills, fever, irritability, weight gain and weight loss. HENT: Negative for congestion, ear pain and sore throat. Eyes: Negative for pain, discharge, redness and visual disturbance. Respiratory: Negative for cough, shortness of breath and wheezing. Cardiovascular: Negative for chest pain, palpitations and leg swelling. Gastrointestinal: Negative for abdominal pain, blood in stool, constipation, diarrhea, nausea and vomiting. Genitourinary: Negative for difficulty urinating, dysuria and frequency. Musculoskeletal: Negative for arthralgias, back pain, joint swelling and myalgias. Skin: Positive for wound. Negative for rash. Neurological: Negative for dizziness, tremors, seizures, syncope and headaches. Psychiatric/Behavioral: Negative for behavioral problems, self-injury and suicidal ideas. The patient is not nervous/anxious. Hematological: Does not bruise/bleed easily. Endocrine: Negative for heat intolerance, polydipsia, polyphagia and polyuria. Allergic/Immunologic: Negative for environmental allergies and food allergies. 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 OBJECTIVE: Visit Vitals BP 120/72 Pulse 71 Temp 97.8 F Resp 20 Ht 5' Wt 113 lb SpO2 97% BMI 22.07 kg/m Smoking Status Former BSA 1.47 m Physical Exam Vitals and nursing note reviewed. Constitutional: General: She is not in acute distress. Appearance: Normal appearance. HENT: Head: Normocephalic and atraumatic. Right Ear: External ear normal. Left Ear: External ear normal. Nose: Nose normal. Mouth/Throat: Mouth: Mucous membranes are moist. Eyes: Extraocular Movements: Extraocular movements intact. Conjunctiva/sclera: Conjunctivae normal. Cardiovascular: Rate and Rhythm: Normal rate and regular rhythm. Pulses: Normal pulses. Heart sounds: Normal heart sounds. No murmur heard. Pulmonary: Effort: Pulmonary effort is normal. Breath sounds: Normal breath sounds. No wheezing or rhonchi. Abdominal: General: Bowel sounds are normal. There is no distension. Palpations: Abdomen is soft. There is no mass. Tenderness: There is no abdominal tenderness. Musculoskeletal: General: Normal range of motion. Cervical back: Normal range of motion and neck supple. No rigidity. Right lower leg: No edema. Left lower leg: No edema. Lymphadenopathy: Cervical: No cervical adenopathy. Skin: General: Skin is warm and dry. Capillary Refill: Capillary refill takes 2 to 3 seconds. Findings: No rash. Comments: Healing wound to right radial aspect of thumb: no s/s infection Avulsed the corner of the tip of the thumb also injuring the nail plate as well Full ROM right thumb Neurological: General: No focal deficit present. Mental Status: She is alert and oriented to person, place, and time. Psychiatric: Mood and Affect: Mood normal. Behavior: Behavior normal. Thought Content: Thought content normal. Judgment: Judgment normal. ASSESSMENT AND PLAN: No follow-ups on file. Problem List Items Addressed This Visit ORQUIDEA (generalized anxiety disorder) (CMS/HCC) Currently taking escitalopram Step father has passed since last visit, mother is home Still w stressors, not as severe Does not need change in med dose Acquired hypothyroidism (CMS/HCC) - Primary Currently taking levo Check labs yearly and prn dose changes Open wound of finger of right hand This happened about 4 weeks ago She was seen in urgent care twice and ER, and has seen wound care once Is doing better, no fever, chills, no acute pain Continue fu with wound care [id number] Evaluation note* Diagnosis Onset Date Resolution Status Admit Date Avulsion of skin of right thumb without complication acute December 03, 2024 6:11pm Laceration of right thumb noneactive December 03, 2024 6:11pm [facility] Work Phone: 1(716) 132-386712-09-2024 History of Present illness Narrative* Michelle Walton, SIDE SHOW ENTERTAINER - 08/23/2024 9:00 AM EST Images from the original note were not included. Terese Camara is a 69 y.o. female presents with chief complaint of osteopenia HPI: No ear symptoms currently Stressors with aging parents, both in assisted for acute issues: Thyroid Problem Presents for follow-up visit. Symptoms include anxiety and fatigue. Patient reports no constipation, depressed mood, diarrhea, hair loss, heat intolerance, hoarse voice, palpitations or tremors. The symptoms have been stable. Anxiety Presents for follow-up visit. Symptoms include excessive worry and nervous/anxious behavior. Patient reports no chest pain, compulsions, depressed mood, dizziness, irritability, nausea, palpitations,shortness of breath or suicidal ideas. Symptoms occur occasionally. The severity of symptoms is mode rate. Compliance with medications is 76-100%. SUBJECTIVE: MEDICATIONS: Current Outpatient Medications Medication Instructions alendronate (FOSAMAX) 35 mg, Oral, Every 7 days escitalopram (LEXAPRO) 10 mg, Oral, Every morning fluticasone (Flonase) 50 MCG/ACT nasal spray 2 sprays, Each Nostril, Daily, Shake gently. Before first use, prime pump. After use, clean tip and replace cap. levothyroxine (SYNTHROID, LEVOXYL) 75 mcg, Oral, Daily before breakfast ALLERGIES: Allergies Allergen Reactions Sulfa Antibiotics Headache Sulfacetamide Headache REVIEW OF SYMPTOMS: Review of Systems Constitutional: Positive for fatigue. Negative for appetite change, chills, fever and irritability. HENT: Negative for congestion, ear pain, hoarse voice and sore throat. Eyes: Negative for pain, discharge, redness and visual disturbance. Respiratory: Negative for cough, shortness of breath and wheezing. Cardiovascular: Negative for chest pain, palpitations and leg swelling. Gastrointestinal: Negative for abdominal pain, blood in stool, constipation, diarrhea, nausea and vomiting. Genitourinary: Negative for difficulty urinating, dysuria and frequency. Musculoskeletal: Negative for arthralgias, back pain, joint swelling and myalgias. Skin: Negative for rash and wound. Neurological: Negative for dizziness, tremors, seizures, syncope and headaches. Psychiatric/Behavioral: Negative for behavioral problems, self-injury and suicidal ideas. The patient is nervous/anxious. Hematological: Does not bruise/bleed easily. Endocrine: Negative for heat intolerance, polydipsia, polyphagia and polyuria. Allergic/Immunologic: Negative for environmental allergies and food allergies. PAST MEDICAL HISTORY Past Medical History: Diagnosis Date Allergic rhinitis Anxiety At low risk for fall Bowel habit changes COVID-19 virus detected Dysfunction of right eustachian tube Fatigue Flexor tendon rupture of hand ORQUIDEA (generalized anxiety disorder) ([facility]) GERD (gastroesophageal reflux disease) HLD (hyperlipidemia) ([facility]) Hypothyroidism ([facility]) Insomnia Leukopenia Microscopic hematuria Mild chronic gastritis Muscle tension pain Osteopenia 10/14/2023 Osteopenia 10/14/2023 Paresthesia Pelvic pain in female Postmenopausal Seasonal allergies Shingles 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 OBJECTIVE: Visit Vitals BP 120/78 (BP Location: Left arm, Patient Position: Sitting, BP Cuff Size: Adult long) Pulse 73 Temp 98.8 F (Temporal) Resp 18 Ht 5' Wt 113 lb 3.2 oz SpO2 97% BMI 22.11 kg/m Smoking Status Former BSA 1.47 m Physical Exam Vitals and nursing note reviewed. Constitutional: General: She is not in acute distress. Appearance: Normal appearance. HENT: Head: Normocephalic and atraumatic. Right Ear: Tympanic membrane, ear canal and external ear normal. Left Ear: Tympanic membrane, ear canal and external ear normal. Nose: Nose normal. No congestion or rhinorrhea. Mouth/Throat: Mouth: Mucous membranes are moist. Eyes: Extraocular Movements: Extraocular movements intact. Conjunctiva/sclera: Conjunctivae normal. Neck: Vascular: No carotid bruit. Cardiovascular: Rate and Rhythm: Normal rate and regular rhythm. Pulses: Normal pulses. Heart sounds: Normal heart sounds. Pulmonary: Effort: Pulmonary effort is normal. Breath sounds: Normal breath sounds. Abdominal: General: Bowel sounds are normal. There is no distension. Palpations: Abdomen is soft. There is no mass. Tenderness: There is no abdominal tenderness. Musculoskeletal: General: Normal range of motion. Cervical back: Normal range of motion and neck supple. Right lower leg: No edema. Left lower leg: No edema. Lymphadenopathy: Cervical: No cervical adenopathy. Skin: General: Skin is warm and dry. Capillary Refill: Capillary refill takes 2 to 3 seconds. Findings: No rash. Neurological: General: No focal deficit present. Mental Status: She is alert and oriented to person, place, and time. Psychiatric: Mood and Affect: Mood normal. Behavior: Behavior normal. Thought Content: Thought content normal. Judgment: Judgment normal. ASSESSMENT AND PLAN: Follow up in about 3 months (around 11/21/2024) for Recheck. Problem List Items Addressed This Visit ORQUIDEA (generalized anxiety disorder) (CMS/HCC) - Primary Currently taking escitalopram If stressors do not improve let me know Temporarily add something if needed?? Relevant Medications escitalopram (Lexapro) 10 MG tablet Acquired hypothyroidism (CMS/HCC) Currently taking levo Check labs yearly and prn dose changes Relevant Medications levothyroxine (Synthroid, Levoxyl) 75 MCG tablet Osteopenia Continue fosamax, Recommend OTC calcium/vit d supplement Regular weight bearing exercises most days of the week as well Relevant Medications alendronate (Fosamax) 35 MG tablet Seasonal allergic rhinitis Relevant Medications fluticasone (Flonase) 50 MCG/ACT nasal spray * Michelle Walton NP - 08/23/2024 6:26 AM ESTAssociated Problem(s): ORQUIDEA (generalized anxiety disorder) (CMS/HCC) Currently taking escitalopram If stressors do not improve let me know Temporarily add something if needed?? * Michelle Walton NP - 08/23/2024 6:25 AM ESTAssociated Problem(s): Acquired hypothyroidism (CMS/HCC) Currently taking levo Check labs yearly and prn dose changes * Michelle Walton NP - 08/23/2024 6:25 AM ESTAssociated Problem(s): Osteopenia Continue fosamax, Recommend OTC calcium/vit d supplement Regular weight bearing exercises most days of the week as well documented in this encounterBoone Hospital [id number] History of Present illness Narrative* Michelle Walton NP - 07/21/2024 1:19 PM ESTAssociated Problem(s): Subacute maxillary sinusitis Atb, fluids, change allergy meds Fu if not better * Michelle Walton NP - 07/21/2024 1:18 PM ESTAssociated Problem(s): Seasonal allergic rhinitis Will have her stop loratadine, trial cetirizine Add flonase nasal spray as well Fu in 6 weeks * JYOTI DALY - 07/21/2024 1:00 PM EST Pt is having swollen and sore glands down the jaw line and into the ears- ear pain and plugged Last week she had headache and vertigo along with pain in her throat and ears She is having drainage and has been taking her allergy meds however not helping with her current issues * Michelle Walton NP - 07/21/2024 1:00 PM EST Images from the original note were not included. Terese Camara is a 69 y.o. female presents with chief complaint of No chief complaint on file. HPI: Swollen glands and ear pain, SAGASTUME and vertigo, muffling in ears, over a week, not better No fever, chills Does have sinus pressure as well SUBJECTIVE: MEDICATIONS: Current Outpatient Medications Medication Instructions alendronate (FOSAMAX) 35 mg, Oral, Every 7 days escitalopram (LEXAPRO) 10 mg, Oral, Every morning levothyroxine (SYNTHROID, LEVOXYL) 75 mcg, Oral, Daily before breakfast ALLERGIES: Allergies Allergen Reactions Sulfa Antibiotics Headache Sulfacetamide Headache REVIEW OF SYMPTOMS: Review of Systems Constitutional: Negative for appetite change, chills and fever. HENT: Positive for ear pain, postnasal drip and sinus pressure. Negative for congestion and sore throat. Eyes: Negative for pain, discharge, redness and visual disturbance. Respiratory: Negative for cough, shortness of breath and wheezing. Cardiovascular: Negative for chest pain, palpitations and leg swelling. Gastrointestinal: Negative for abdominal pain, blood in stool, constipation, diarrhea, nausea and vomiting. Genitourinary: Negative for difficulty urinating, dysuria and frequency. Musculoskeletal: Negative for arthralgias, back pain, joint swelling and myalgias. Skin: Negative for rash and wound. Neurological: Negative for dizziness, tremors, seizures, syncope and headaches. Psychiatric/Behavioral: Negative for behavioral problems, self-injury and suicidal ideas. The patient is not nervous/anxious. Hematological: Does not bruise/bleed easily. Endocrine: Negative for polydipsia, polyphagia and polyuria. Allergic/Immunologic: Negative for environmental allergies and food allergies. PAST MEDICAL HISTORY Past Medical History: Diagnosis Date Allergic rhinitis Anxiety At low risk for fall Bowel habit changes COVID-19 virus detected Dysfunction of right eustachian tube Fatigue Flexor tendon rupture of hand ORQUIDEA (generalized anxiety disorder) ([facility]) GERD (gastroesophageal reflux disease) HLD (hyperlipidemia) ([facility]) Hypothyroidism ([facility]) Insomnia Leukopenia Microscopic hematuria Mild chronic gastritis Muscle tension pain Osteopenia 10/14/2023 Osteopenia 10/14/2023 Paresthesia Pelvic pain in female Postmenopausal Seasonal allergies Shingles 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 OBJECTIVE: Visit Vitals Smoking Status Former Physical Exam Vitals and nursing note reviewed. Constitutional: General: She is not in acute distress. Appearance: Normal appearance. She is ill-appearing. HENT: Head: Normocephalic and atraumatic. Right Ear: Ear canal and external ear normal. Left Ear: Ear canal and external ear normal. Ears: Comments: Bilat TM's dull appearance, no definite fluid Nose: Rhinorrhea present. No congestion. Comments: Pallor, +sinus pressure Mouth/Throat: Mouth: Mucous membranes are moist. Pharynx: No oropharyngeal exudate or posterior oropharyngeal erythema. Eyes: Extraocular Movements: Extraocular movements intact. Conjunctiva/sclera: Conjunctivae normal. Cardiovascular: Rate and Rhythm: Normal rate and regular rhythm. Pulses: Normal pulses. Heart sounds: Normal heart sounds. Pulmonary: Effort: Pulmonary effort is normal. Breath sounds: Normal breath sounds. Musculoskeletal: General: Normal range of motion. Cervical back: Normal range of motion and neck supple. Lymphadenopathy: Cervical: Cervical adenopathy (tenderness to tonsilar nodes) present. Skin: General: Skin is warm and dry. Capillary Refill: Capillary refill takes 2 to 3 seconds. Findings: No rash. Neurological: General: No focal deficit present. Mental Status: She is alert and oriented to person, place, and time. Psychiatric: Mood and Affect: Mood normal. Behavior: Behavior normal. Thought Content: Thought content normal. Judgment: Judgment normal. ASSESSMENT AND PLAN: No follow-ups on file. Problem List Items Addressed This Visit BMI 22.0-22.9, adult - Primary Seasonal allergic rhinitis Will have her stop loratadine, trial cetirizine Add flonase nasal spray as well Fu in 6 weeks Relevant Medications fluticasone (Flonase) 50 MCG/ACT nasal spray Subacute maxillary sinusitis Atb, fluids, change allergy meds Fu if not better Relevant Medications amoxicillin-clavulanate (Augmentin) 875-125 MG tablet documented in this encounterBoone Hospital [id number] Instructions* Patient Instructions* Michelle Walton NP - 07/21/2024 1:00 PM EST Finish atb Stop loratadine, trial generic zyrtec which is cetirizine Add flonase nasal spray 2 sprays each nostril daily documented in this encounterBoone Hospital [id number] [facility] History of Present illness Narrative* Michelle Walton NP - 05/24/2024 5:49 PM EDTAssociated Problem(s): Irritable bowel syndrome with diarrhea Check labs Will also refer to Gastro for eval as well as colonoscopy screening * Michelle Walton NP - 05/24/2024 5:48 PM EDTAssociated Problem(s): Gastroesophageal reflux disease Does not feel GERD symptoms have worsened * Michelle Walton NP - 05/24/2024 5:45 PM EDTAssociated Problem(s): Encounter for subsequent annual wellness visit (AWV) in Medicare patient Reviewed Ht/Wt/BMI Recommend eye exam yearly Recommend dental exams twice a year Balance work/leisure activities Exercises is recommended most days of the week (appropriate as chronic conditions allow) Follow up yearly and prn * Michelle Walton NP - 05/24/2024 5:45 PM EDTAssociated Problem(s): ORQUIDEA (generalized anxiety disorder) (CMS/HCC) Continue current meds * Michelle Walton NP - 05/24/2024 5:45 PM EDTAssociated Problem(s): Acquired hypothyroidism (CMS/HCC) Continue current meds Check labs * Michelle Walton NP - 05/24/2024 5:44 PM EDTAssociated Problem(s): Osteopenia No changes * JYOTI DALY - 05/24/2024 5:00 PM EDT Pt would like to discuss IBS issues, she has been having problems again in the last 3-4 weeks. Pt would like to discuss getting her digestive enzymes or food sensitivity tested. Pt would like to discuss being randomly fatigue for 2 days and then will have energy again. * Michelle Walton NP - 05/24/2024 5:00 PM EDT Images from the original note were not included. Terese Camara is a 69 y.o. female presents with chief complaint of No chief complaint on file. HPI: Here for AWV: Diet:variety Activity: daily exercise Mood:good Concerns; IBS-D: seems to be worsening lately, no specific food triggers, no NV or abd pain. No bloody stools, no increase in stressors . Last colonoscopy in 2012 Living Will or HCPOA: already has Anxiety Presents for follow-up visit. Patient reports no chest pain, compulsions, confusion, decreased concentration, depressed mood, dizziness, dry mouth, excessive worry, feeling of choking, irritability, malaise, muscle tension, nausea, nervous/anxious behavior, obsessions, palpitations, panic, restlessness, shortness of breath or suicidal ideas. Symptoms occur occasionally. The severity of symptoms is mild. The quality of sleep is good. Compliance with medications is 76-100%. Thyroid Problem Presents for follow-up visit. Symptoms include diarrhea and fatigue. Patient reports no anxiety, constipation, depressed mood, hair loss, heat intolerance, hoarse voice, leg swelling, menstrual problem, palpitations, tremors or weight gain. The symptoms have been stable. SUBJECTIVE: MEDICATIONS: Current Outpatient Medications Medication Instructions alendronate (FOSAMAX) 35 mg, Oral, Every 7 days, Take 1 tablet by mouth every 7 (seven) days escitalopram (LEXAPRO) 10 mg, Oral, Daily levothyroxine (SYNTHROID, LEVOXYL) 75 mcg, Oral, Daily before breakfast ALLERGIES: Allergies Allergen Reactions Sulfa Antibiotics Headache REVIEW OF SYMPTOMS: Review of Systems Constitutional: Positive for fatigue. Negative for appetite change, chills, fever, irritability andweight gain. HENT: Negative for congestion, ear pain, hoarse voice and sore throat. Eyes: Negative for pain, discharge, redness and visual disturbance. Respiratory: Negative for cough, shortness of breath and wheezing. Cardiovascular: Negative for chest pain, palpitations and leg swelling. Gastrointestinal: Positive for diarrhea. Negative for abdominal pain, blood in stool, constipation,nausea and vomiting. Genitourinary: Negative for difficulty urinating, dysuria, frequency and menstrual problem. Musculoskeletal: Negative for arthralgias, back pain, joint swelling and myalgias. Skin: Negative for rash and wound. Neurological: Negative for dizziness, tremors, seizures, syncope and headaches. Psychiatric/Behavioral: Negative for behavioral problems, confusion, decreased concentration, self-injury and suicidal ideas. The patient is not nervous/anxious. Hematological: Does not bruise/bleed easily. Endocrine: Negative for heat intolerance, polydipsia, polyphagia and polyuria. Allergic/Immunologic: Negative for environmental allergies and food allergies. PAST MEDICAL HISTORY Past Medical History: Diagnosis Date Allergic rhinitis Anxiety At low risk for fall Bowel habit changes COVID-19 virus detected Dysfunction of right eustachian tube Fatigue Flexor tendon rupture of hand ORQUIDEA (generalized anxiety disorder) ([facility]) GERD (gastroesophageal reflux disease) HLD (hyperlipidemia) ([facility]) Hypothyroidism ([facility]) Insomnia Leukopenia Microscopic hematuria Mild chronic gastritis Muscle tension pain Osteopenia 10/14/2023 Osteopenia 10/14/2023 Paresthesia Pelvic pain in female Postmenopausal Seasonal allergies Shingles 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 OBJECTIVE: Visit Vitals BP 124/78 (BP Location: Left arm, Patient Position: Sitting, BP Cuff Size: Adult long) Pulse 76 Temp 97.5 F (Temporal) Resp 18 Ht 5' Wt 114 lb 6.4 oz SpO2 97% BMI 22.34 kg/m Smoking Status Former BSA 1.48 m Physical Exam Vitals and nursing note reviewed. Constitutional: General: She is not in acute distress. Appearance: Normal appearance. HENT: Head: Normocephalic and atraumatic. Right Ear: External ear normal. Left Ear: External ear normal. Nose: Nose normal. Mouth/Throat: Mouth: Mucous membranes are moist. Eyes: Extraocular Movements: Extraocular movements intact. Conjunctiva/sclera: Conjunctivae normal. Neck: Vascular: No carotid bruit. Cardiovascular: Rate and Rhythm: Normal rate and regular rhythm. Pulses: Normal pulses. Heart sounds: Normal heart sounds. Pulmonary: Effort: Pulmonary effort is normal. Breath sounds: Normal breath sounds. No wheezing, rhonchi or rales. Chest: Chest wall: No tenderness. Abdominal: General: Bowel sounds are normal. There is no distension. Palpations: Abdomen is soft. There is no mass. Tenderness: There is no abdominal tenderness. Musculoskeletal: General: Normal range of motion. Cervical back: Normal range of motion and neck supple. Lymphadenopathy: Cervical: No cervical adenopathy. Skin: General: Skin is warm and dry. Capillary Refill: Capillary refill takes 2 to 3 seconds. Findings: No rash. Neurological: General: No focal deficit present. Mental Status: She is alert and oriented to person, place, and time. Psychiatric: Mood and Affect: Mood normal. Behavior: Behavior normal. Thought Content: Thought content normal. Judgment: Judgment normal. ASSESSMENT AND PLAN: No follow-ups on file. Problem List Items Addressed This Visit ORQUIDEA (generalized anxiety disorder) (CMS/HCC) Continue current meds Acquired hypothyroidism (CMS/HCC) Continue current meds Check labs Relevant Orders TSH T4, free Lipid panel Osteopenia No changes Relevant Orders Comprehensive metabolic panel Gastroesophageal reflux disease Does not feel GERD symptoms have worsened Relevant Orders CBC and differential Comprehensive metabolic panel Encounter for screening mammogram for malignant neoplasm of breast - Primary Relevant Orders Bilateral screening mammogram Encounter for subsequent annual wellness visit (AWV) in Medicare patient Reviewed Ht/Wt/BMI Recommend eye exam yearly Recommend dental exams twice a year Balance work/leisure activities Exercises is recommended most days of the week (appropriate as chronic conditions allow) Follow up yearly and prn Colon cancer screening Irritable bowel syndrome with diarrhea Check labs Will also refer to Gastro for eval as well as colonoscopy screening documented in this encounterNOWI HealthcareEvaluation note* Diagnosis ORQUIDEA (generalized anxiety disorder) (CMS/HCC) Generalized anxiety disorder Acquired hypothyroidism (CMS/HCC) Unspecified hypothyroidism documented in this encounter [facility] HealthcareEvaluation noteNo assessment information availableMercy Health [facility] Work Phone: Evaluation note* Diagnosis Otalgia of both ears- Primary Tobacco abuse Tobacco use disorder BMI 22.0-22.9, adult Acquired hypothyroidism (CMS/HCC) Unspecified hypothyroidism Osteopenia, unspecified location ORQUIDEA (generalized anxiety disorder) (CMS/HCC) Generalized anxiety disorder Encounter for subsequent annual wellness visit (AWV) in Medicare patient- Primary Encounter for screening mammogram for malignant neoplasm of breast Acquired hypothyroidism (CMS/HCC) Unspecified hypothyroidism Osteopenia, unspecified location Gastroesophageal reflux disease, unspecified whether esophagitis present ORQUIDEA (generalized anxiety disorder) (CMS/HCC) Generalized anxiety disorder Colon cancer screening Special screening for malignant neoplasms, colon Irritable bowel syndrome with diarrhea Irritable bowel syndrome Subacute maxillary sinusitis- Primary BMI 22.0-22.9, adult Seasonal allergic rhinitis due to pollen [facility]* Diagnosis Otalgia of both ears- Primary Tobacco abuse Tobacco use disorder BMI 22.0-22.9, adult Acquired hypothyroidism (CMS/HCC) Unspecified hypothyroidism Osteopenia, unspecified location ORQUIDEA (generalized anxiety disorder) (CMS/HCC) Generalized anxiety disorder Encounter for subsequent annual wellness visit (AWV) in Medicare patient- Primary Encounter for screening mammogram for malignant neoplasm of breast Acquired hypothyroidism (CMS/HCC) Unspecified hypothyroidism Osteopenia, unspecified location Gastroesophageal reflux disease, unspecified whether esophagitis present ORQUIDEA (generalized anxiety disorder) (CMS/HCC) Generalized anxiety disorder Colon cancer screening Special screening for malignant neoplasms, colon Irritable bowel syndrome with diarrhea Irritable bowel syndrome Subacute maxillary sinusitis- Primary BMI 22.0-22.9, adult Seasonal allergic rhinitis due to pollen ORQUIDEA (generalized anxiety disorder) (CMS/HCC)- Primary Generalized anxiety disorder Osteopenia, unspecified location Acquired hypothyroidism (CMS/HCC) Unspecified hypothyroidism Seasonal allergic rhinitis due to pollen documented [facility] encounter [facility]* Diagnosis Encounter for subsequent annual wellness visit (AWV) in Medicare patient- Primary Encounter for screening mammogram for malignant neoplasm of breast Acquired hypothyroidism (CMS/HCC) Unspecified hypothyroidism Osteopenia, unspecified location Gastroesophageal reflux disease, unspecified whether esophagitis present ORQUIDEA (generalized anxiety disorder) ([facility]) Generalized anxiety disorder Colon cancer screening Special screening for malignant neoplasms, colon Irritable bowel syndrome with diarrhea Irritable bowel syndrome documented in this encounter [facility]* Diagnosis Osteopenia, unspecified location documented in this encounter [facility]* Diagnosis Onset Date Resolution Status Admit Date Laceration of right thumb noneactive December 03, 2024 6:11pm [facility] Work Phone: Evaluation note* Diagnosis Otalgia of both ears- Primary Tobacco abuse Tobacco use disorder BMI 22.0-22.9, adult Acquired hypothyroidism ([facility]) Unspecified hypothyroidism Osteopenia, unspecified location ORQUIDEA (generalized anxiety disorder) ([facility]) Generalized anxiety disorder Encounter for subsequent annual wellness visit (AWV) in Medicare patient- Primary Encounter for screening mammogram for malignant neoplasm of breast Acquired hypothyroidism ([facility]/HCC) Unspecified hypothyroidism Osteopenia, unspecified location Gastroesophageal reflux disease, unspecified whether esophagitis present ORQUIDEA (generalized anxiety disorder) ([facility]) Generalized anxiety disorder Colon cancer screening Special screening for malignant neoplasms, colon Irritable bowel syndrome with diarrhea Irritable bowel syndrome Subacute maxillary sinusitis- Primary BMI 22.0-22.9, adult Seasonal allergic rhinitis due to pollen ORQUIDEA (generalized anxiety disorder) ([facility]/HCC)- Primary Generalized anxiety disorder Osteopenia, unspecified location Acquired hypothyroidism ([facility]/HCC) Unspecified hypothyroidism Seasonal allergic rhinitis due to pollen Open wound of finger of right hand, subsequent encounter- Primary Acquired hypothyroidism ([facility]/HCC) Unspecified hypothyroidism ORQUIDEA (generalized anxiety disorder) ([facility]) Generalized anxiety disorder documented in this encounter [facility] Diagnosis Otalgia of both ears- Primary Tobacco abuse Tobacco use disorder BMI 22.0-22.9, adult Acquired hypothyroidism (CMS/HCC) Unspecified hypothyroidism Osteopenia, unspecified location ORQUIDEA (generalized anxiety disorder) ([facility]) Generalized anxiety disorder Encounter for subsequent annual wellness visit (AWV) in Medicare patient- Primary Encounter for screening mammogram for malignant neoplasm of breast Acquired hypothyroidism ([facility]) Unspecified hypothyroidism Osteopenia, unspecified location Gastroesophageal reflux disease, unspecified whether esophagitis present ORQUIDEA (generalized anxiety disorder) ([facility]) Generalized anxiety disorder Colon cancer screening Special screening for malignant neoplasms, colon Irritable bowel syndrome with diarrhea Irritable bowel syndrome Subacute maxillary sinusitis- Primary BMI 22.0-22.9, adult Seasonal allergic rhinitis due to pollen ORQUIDEA (generalized anxiety disorder) ([facility])- Primary Generalized anxiety disorder Osteopenia, unspecified location Acquired hypothyroidism ([facility]) Unspecified hypothyroidism Seasonal allergic rhinitis due to pollen Open wound of finger of right hand, subsequent encounter- Primary Acquired hypothyroidism ([facility]) Unspecified hypothyroidism ORQUIDEA (generalized anxiety disorder) ([facility]) Generalized anxiety disorder Acquired hypothyroidism ([facility]) Unspecified hypothyroidism Osteopenia, unspecified location documented in this encounter [facility]* Diagnosis Otalgia of both ears- Primary Tobacco abuse Tobacco use disorder BMI 22.0-22.9, adult Acquired hypothyroidism Unspecified hypothyroidism Osteopenia, unspecified location ORQUIDEA (generalized anxiety disorder) Generalized anxiety disorder Encounter for subsequent annual wellness visit (AWV) in Medicare patient- Primary Encounter for screening mammogram for malignant neoplasm of breast Acquired hypothyroidism Unspecified hypothyroidism Osteopenia, unspecified location Gastroesophageal reflux disease, unspecified whether esophagitis present ORQUIDEA (generalized anxiety disorder) Generalized anxiety disorder Colon cancer screening Special screening for malignant neoplasms, colon Irritable bowel syndrome with diarrhea Irritable bowel syndrome Subacute maxillary sinusitis- Primary BMI 22.0-22.9, adult Seasonal allergic rhinitis due to pollen ORQUIDEA (generalized anxiety disorder)- Primary Generalized anxiety disorder Osteopenia, unspecified location Acquired hypothyroidism Unspecified hypothyroidism Seasonal allergic rhinitis due to pollen Open wound of finger of right hand, subsequent encounter- Primary Acquired hypothyroidism Unspecified hypothyroidism ORQUIDEA (generalized anxiety disorder) Generalized anxiety disorder ORQUIDEA (generalized anxiety disorder) Generalized anxiety disorder documented in this encounter [facility]* Diagnosis Onset Date Resolution Status Admit Date Acquired hypothyroidism acute S ep2024 9:59am Breast cancer screening acute S 2024 9:59am Encounter for subsequent ximena ual wellness visit (AWV) in Medicare patient acute May 24, 2025 9:59am ORQUIDEA (generalized anxiety disorder) acute May 24 025 9:59am Major depressive disorder, single episode, mild acute May 242024 9:59am Osteopenia acute May 24, 2025 9:59am [facility] Work Phone: History and physical note Author Thang Tolentino [facility] June 28, 2024 9:27am Note Date/Time June 28, 2024 9 :29am [facility] [address] [place] [address] Gastroenterology H&P Signed Patient: Terese Camara MR#: [id number] : 1955 Acct:[id number] Age/Sex: 69 / F Adm Date: 4 Loc: Room: Type: [facility] Attending Dr: Thang Tolentino MD Copies to: MD Michelle Bravo, SIDE SHOW ENTERTAINER-C~ Date of Service: 06/28/2024 HISTORY & PHYSICAL: Patient's history with special attention to the cardiovascular, pulmonary systems and the current problem was reviewed with the patient immediately prior to the procedure. Present medications and doses reviewed in the EMR. Allergies and pertinent laboratory tests were also reviewedat this time in the EMR. The physical examination, as below, was then performed. Indication, assessment and HPI: 69-year-old female here for colonoscopy for evaluation of diarrhea Family history of GI malignancy? No PHYSICAL EXAMINATION General appearance: NAD Skin: No jaundice Head: NC/AT Eyes: Anicteric Neck: Supple Lungs: Normal respiratory effort, no use of accessory muscles Abdomen: nondistended Neuro: Ox3. REVIEW OF SYSTEMS Constitutional: Denies malaise, fevers Cardiovascular: Denies chest pain, palpitations Respiratory: Denies shortness of breath, wheezing Gastrointestinal: As per HPI Genitourinary: Denies dysuria, polyuria Musculoskeletal: Denies joint swelling, joint stiffness Neurological: Denies confusion, numbness, tingling Endocrine: Denies fatigue Written informed consent obtained from the patient. Risks (including but not limited to perforation, infection, bloating, bleeding, need for emergent surgeryand loss of life), benefits and alternatives explained and questions answered. The patient verbalized understanding. Based on history patient is an appropriate candidate for the procedure. Thang Tolentino M.D. Documented By: Thang Tolentino MD 06/28/24925 Signed By: <Electronically signed by Thang Tolentino MD> 06/28/24926 [facility] Work Phone: Hospital Discharge instructions Additional Instructions DISCHARGE INSTRUCTIONS FOR COLONOSCOPY WHAT TO EXPECT: - You may feel full, gassy or cramping after your procedure. In some cases, this may be from a few hours to a day. Walking may help relieve the discomfort. - If you have polyp(s) removed you may note some minor bloody discharge after your first bowel movements. - You should begin to recover from anesthesia within 1 hour of the procedure, however may feel groggy for the next 24 hours. DO's AND DON'Ts: - Call your doctor right away if you have a hard abdomen, severe pain, are passing lots of bright red blood or clots. - Call your doctor if you develop any rashes, hives or difficulty breathing. - Let your doctor know if you have not had a bowel movement by 3 days after your procedure. - If you take 81 mg aspirin for your heart it is safe to resume this medication. - If you take other blood thinner medications your doctor will instruct you when these can safely be resumed. - Do NOT drive for 24 hours. - Do NOT operate machinery such as power tools, lawn mowers, snow blowers, sewing machines, etc. for 24 hours. - Avoid alcoholic beverages and drugs for allergies, nerves, or sleep. - Do NOT stay alone. Do NOT leave your child unattended. - Do NOT make important personal or business decisions or sign any legal documents. - Eat solid foods and drink liquids in smaller amounts than usual until normal appetite returns. If you should experience an upset stomach, liquids high in sugar content (soda, Torres-Aid, non-acid juices) are recommended. - You can resume normal activities tomorrow. FOLLOW UP & RECOMMENDATIONS: -Notify the doctor if you have any problems. -Repeat colonoscopy based on polyp pathology -Follow up with PCP. -Office number [phone]. [facility] Work Phone: Reason for referral (narrative)* Consultation (Routine) - Pending Review Specialty Diagnoses / Procedures Referred By Contac t Referred To Contact Gastroenterology Diagnoses Colon cancer screening Irritable bowel syndrome with diarrhea Procedures MA OFFICE/OUTPATIENT NEW HIGH MDM 60 MINUTES Michelle Walton, VINCENZO [address] [place] [address] [facility] [address] [facility] [place] [address] Referral ID Status Reason Start Date Expiration Date Visits Requested Visits Authorized [id number] Pending Review Specialty Services Required 05/24/2024 11/20/2024 1 1 KERRY Cardenas for referral (narrative)No reason for referral [facility] Work [facility]: Summary Purpose Family History No Family History Records Found Relationship Condition Age at Onset Recorded Date/T jadyn father Unknown Malignant neoplasm Unknown mother Cerebrovascular accident (CVA) Unknown Hypertension Unknown Advance Directives No Advanced Directives Records Found Advance Directive Response Recorded Date/ Time Advance Directives No May 10:11am Chief Complaint and Reason for Visit Chief Complaint IBS w/ diarrhea IBS w/ diarrhea Chief Complaint Admit Date Right thumb laceration December 03, 2024 6:11pm Reason for Visit Admit Date Laceration of right thumb December 03 6:11pm Chief Complaint Admit Date Right thumb laceration December 03, 2024 6:11pm Poss infected wound December 14, 2024 11:3 8am Reason for Visit Admit Date Avulsion of skin of right thumb without complication December 03, 2024 6:11pm Laceration of right thumb December 03 6:11pm Chief Complaint Admit Date Medicare Annual Wellness May 24, 2025 9:59am Reason for Visit Admit Date Acquired hypothyroidism May 24 9:59am Breast cancer screening May 24 9:59am Encounter for subsequent [facility] wellness visit (AWV) in Medicare patient May 24, 2025 9:59am ORQUIDEA (generalized anxiety disorder) Sophia jacobsen 2024 9:59am Major depressive disorder, single episod e, mild May 24, 2025 9:59am Osteopenia May 24, 2025 9:59am Chief Complaint Admit Date Medicare Annual Wellness May 24, 2025 9:59am Z12.31 Z12.39 June 16, 2025 2: 43pm Reason for Visit Admit Date Acquired hypothyroidism May 24, 2 025 9:59am Breast cancer screening by mammogram Sep tember 2024 9:59am Encounter for subsequent ximena ua wellness visit (AWV) in Medicare patient May 24, 2025 9:59am ORQUIDEA (generalized anxiety disorder) Sophia mber 2024 9:59am Major depressive disorder, single episod e, mild May 24, 2025 9:59am Osteopenia May 24, 2025 9:59am Additional Source Comments INFORMATION SOURCE (unrecogn ized section and content) DATE CREATED AUTHOR 03/23/2018 [facility] DATE CREATED AUTHOR AUTHOR'S ORGANIZ ATION 08/03/2022 [facility] DATE CREATED AUTHOR AUTHOR'S ORGANIZ ATION 12/31/2024 [facility] EPIC DATE CREATED AUTHOR AUTHOR'S ORGANIZ ATION 06/25/2025 [facility] Reason for Visit (unrecogniz ed section and content) Reason Comments Med Refill Reason Comments osteopenia Reason Comments Follow-up Urgent care follow u p wound on right thumb Care Teams (unrecognized sec tion and content) Advanced Practice Registered Nurse Relationship Specialty Start Date End Date Danny Davis MD [address] [place] [address] PCP - Devoted 09/15/23 Danny Davis MD [address] [place] [address] PCP - General Family Medicine 10/07/23 Michelle Walton NP [address] [place] [address] Nurse Practitioner Family Medicine 09/15/22 Team Status: Active Member Role Status Dates Michelle Walton Primary Care Provider Active Team Status: Inactive Member Role Status Dates Michelle Walton Primary Care Provider Active Sta rt: June 28, 2024 End: June 28, 2024 Thang Tolentino MD Attending Provider Active Start: June 28, 2024 End: June 28, 2024 Team Status: Active Member Role Status Dates Michelle Walton Primary Care Provider Active Sta rt: June 28, 2024 Thang Tolentino MD Attending Provider, Other Provider Active Start: June 28, 2024 Advanced Practice Registered Nurse Relationship Specialty Start Date End Date Danny Davis MD [address] [place] [address] PCP - Devoted 09/15/23 Danny Davis MD [address] [place] [address] PCP - General Family Medicine 10/07/23 Michelle Walton NP [address] [place] [address] Nurse Practitioner Family Medicine 09/15/22 Advanced Practice Registered Nurse Relationship Specialty Start Date End Date Danny Davis MD [address] [place] [address] PCP - Devoted 09/15/23 Danny Davis MD [address] [place] [address] PCP - General Family Medicine 10/07/23 Michelle Walton NP [address] [place] [address] Nurse Practitioner Family Medicine 09/15/22 Advanced Practice Registered Nurse Relationship Specialty Start Date End Date Danny Davis MD [address] [place] [address] PCP - Devoted 09/15/23 Danny Davis MD [address] [place] [address] PCP - General Family Medicine 10/07/23 Michelle Walton NP [address] [place] [address] Nurse Practitioner Family Medicine 09/15/22 Advanced Practice Registered Nurse Relationship Specialty Start Date End Date Danny Davis MD [address] [place] [address] PCP - Devoted 09/15/23 Danny Davis MD [address] [place] [address] PCP - General Family Medicine 10/07/23 Michelle Walton, SIDE SHOW ENTERTAINER [address] [place] [address] Nurse Practitioner Family Medicine 09/15/22 Advanced Practice Registered Nurse Relationship Specialty Start Date End Date Danny Davis MD [address] [place] [address] PCP - Devoted 09/15/23 Danny Davis MD [address] [place] [address] PCP - General Family Medicine 10/07/23 Michelle Walton NP [address] [place] [address] Nurse Practitioner Family Medicine 09/15/22 Advanced Practice Registered Nurse Relationship Specialty Start Date End Date Danny Davis MD [address] [place] [address] PCP - Devoted 09/15/23 Danny Davis MD [address] [place] [address] PCP - General Family Medicine 10/07/23 Michelle Walton NP [address] [place] [address] Nurse Practitioner Family Medicine 09/15/22 Advanced Practice Registered Nurse Relationship Specialty Start Date End Date Danny Davis MD [address] [place] [address] PCP - Devoted 09/15/23 Danny Davis MD [address] [place] [address] PCP - General Family Medicine 10/07/23 Michelle Walton NP [address] [place] [address] Nurse Practitioner Family Medicine 09/15/22 Advanced Practice Registered Nurse Relationship Specialty Start Date End Date Danny Davis MD [address] [place] [address] PCP - Devoted 09/15/23 Danny Davis MD [address] [place] [address] PCP - General Family Medicine 10/07/23 Michelle Walton NP [address] [place] [address] Nurse Practitioner Family Medicine 09/15/22 Team Status: Inactive Member Role Status Dates Michelle Walton Primary Care Provider Active Sta rt: December 03, 2024 End: December 03, 2024 GLO Zuniga RN SIDE SHOW ENTERTAINER-C Attending Provider Active Start: December 03 End: December 03, 2024 Team Status: Inactive Member Role Status Dates Michelle Walton Primary Care Provider Active Sta rt: December 14, 2024 End: December 14, 2024 Sol Stephen APRN Attending Provider Active Start: December 14, 2024 End: December 14, 2024 Advanced Practice Registered Nurse Relationship Specialty Start Date End Date Danny Davis MD [address] [place] [address] PCP - Devoted 09/15/23 Danny Davis MD [address] [place] [address] PCP - General Family Medicine 10/07/23 Michelle Walton NP [address] [place] [address] Nurse Practitioner Family Medicine 09/15/22 Advanced Practice Registered Nurse Relationship Specialty Start Date End Date Danny Davis MD [address] [place] [address] PCP - Devoted 09/15/23 Danny Davis MD [address] [place] [address] PCP - General Family Medicine 10/07/23 Michelle Walton NP [address] [place] [address] Nurse Practitioner Family Medicine 09/15/22 Advanced Practice Registered Nurse Relationship Specialty Start Date End Date Danny Davis MD [address] [place] [address] PCP - Devoted 09/15/23 Danny Davis MD [address] [place] [address] PCP - General Family Medicine 10/07/23 Michelle Walton NP [address] [place] [address] Nurse Practitioner Family Medicine 09/15/22 Advanced Practice Registered Nurse Relationship Specialty Start Date End Date Danny Davis MD [address] [place] [address] PCP - Devoted 09/15/23 Danny Davis MD [address] [place] [address] PCP - General Family Medicine 10/07/23 Michelle Walton NP [address] [place] [address] Nurse Practitioner Family Medicine 09/15/22 Team Status: Inactive Member Role Status Dates Michelle Walton Primary Care Provider Active Sta rt: May 24, 2025 End: May 24, 2025 Michelle Walton Attending Provider Active Start: May 24, 2025 End: May 24, 2025 Team Status: Active Member Role Status Dates Michelle Walton SIDE SHOW ENTERTAINER-C Primary Care Provider Active Team Status: Inactive Member Role Status Dates Michelle Walton SIDE SHOW ENTERTAINER-C Primary Care Provider Active Start: May 24, 2025 End: May 24, 2025 Michelle Walton NP-Celeste Attending Provider Active Start: May 24, 2025 End: May 24, 2025 Team Status: Inactive Member Role Status Dates Michelle Walton SIDE SHOW ENTERTAINER-C Primary Care Provider Active Start: June 16, 2025 End: June 16, 2025 Michelle Walton NP-C Attending Provider Active Start: June 16, 2025 End: June 16, 2025 Goals (unrecognized section and content) Goals may be documented in a n alternate sectionGoals may be documented in an alternate sectionGoals may be documented in an alternate sectionGoals may be documented in an alternate section FOR RECORDS PERTAINING TO PATIENTS WHO ARE OR HAVE BEEN ENROLLED IN A CHEMICAL DEPENDENCY/SUBSTANCEABUSE PROGRAM, SOME INFORMATION MAY BE OMITTED. This clinical summary was aggregated from multiple sources. Caution should be exercised in using it in the provision of clinical care. This summary normalizes information from multiple sources, and as a consequence, information in this document may materially change the coding, format and clinical context of patient data. In addition, data may be omitted in some cases. CLINICAL DECISIONS SHOULD BE BASED ON THE PRIMARY CLINICAL RECORDS. [employer] provides no warranty or guarantee of the accuracy or completeness of information in this document.
[2025-07-01 08:49] LABS: Hematocrit 43.6 % (36.0-48.0); Hemoglobin 14.3 g/dL (12.0-16.0); Immature Granulocytes Abs Auto 0.01 10^3/uL (0.00-0.03); Immature Granulocytes Pct Auto 0.2 % (0.0-0.5); Lymphocytes Absolute Auto 2.0 10^3/uL (1.2-3.8); Mean Corpuscular HGB Conc 32.8 g/dL (29.9-35.2); Mean Corpuscular Hemoglobin 30.2 pg (26.7-34.0); Mean Corpuscular Volume 92.0 fL (81.0-99.0); Platelet Count 254 10^3/uL (150-450); Red Blood Count 4.74 10^6/uL (4.20-5.40); White Blood Count 4.6 10^3/uL (4.0-11.0)
[2025-07-01 09:40] LABS: Alanine Aminotransferase 14 U/L (14-59); Albumin Globulin Ratio 1.0; Albumin Level 3.7 g/dL (3.4-5.0); Alkaline Phosphatase 70 U/L (46-116); Anion Gap 10.1; Aspartate Amino Transferase 17 U/L (15-37); Blood Urea Nitrogen 11.0 mg/dL (7.0-18.0); Calcium 9.1 mg/dL (8.5-10.1); Carbon Dioxide 30.3 mmol/L (21.0-32.0); Chloride 108 mmol/L (98-107); Cholesterol 219 mg/dL (<=200); Estimated GFR (African America >60 (>=60 mL/min/1.73m^2); Estimated GFR (Non-African Ame >60 (>=60 mL/min/1.73m^2); Globulin 3.6 g/dL; Glucose 91 mg/dL (74-106); HDL Cholesterol 93 mg/dL (40-60); Potassium 4.4 mmol/L (3.5-5.1); Sodium 144 mmol/L (136-145); Thyroid Stimulating Hormone 1.280 uIU/mL (0.358-3.740); Total Protein 7.3 g/dL (6.4-8.2); Triglycerides 43 mg/dL (<=150); VLDL CHOLESTEROL 8.6 mg/dL
== END 2025-07-01 08:05 | disposition home or self-care (01) ==
LOC: LAB 08:04
PROVIDERS: PCP Nurse Practitioner; Visit Provider Nurse Practitioner
DX: E03.9 Hypothyroidism, unspecified (principal); F41.1 Generalized anxiety disorder
CPT/HCPCS: 36415; 80053; 80061; 84439; 84443; 85025